=== PATIENT | female | born 1980 | race Caucasian/White ===

== ENCOUNTER 2018-03-29 08:45 | Outpatient (CLI) | payer BC, SELFPAY ==
[2018-03-29 09:41] LABS: HCT 39.5 % (36.0-46.0); Mean Corp. HGB Concentration 32.9 g/dL (32.0-36.0); Mean Corpuscular Volume 85.1 fL (80-95); Mean Platelet Volume 11.2 fL (8.0-11.0); Platelet Count 275 x1000/uL (130-400); RBC 4.64 m/cumm (4.00-5.20); RBC Distribution Width 12.8 % (11.7-14.6); White Blood Cell Count 6.85 k/cumm (4.4-10.8)
[2018-03-29 10:22] LABS: Anion Gap 9.8 mmol/L (3-11); BUN 12 mg/dL (7-18); CO2 27.2 mmol/L (21.0-32.0); CREATININE 0.68 mg/dL (0.55-1.02); Calcium 9.1 mg/dL (8.5-10.1); Chloride 103 mmol/L (98-107); Cholesterol 190 mg/dL (50-200); Glucose 88 mg/dL (70-100); HDL Cholesterol 40 mg/dL (40-60); LDL CHOLESTEROL 143 mg/dL (<100); Potassium 4.4 mmol/L (3.5-5.1); Sodium 140 mmol/L (136-145); TSH (W/Ref FT4) 1.15 uIU/mL (0.358-3.74); Triglyceride 47 mg/dL (30-150)
== END 2018-03-29 09:05 ==
PROVIDERS: PCP Family Medicine; Visit Provider Family Medicine
DX: Z00.00 Encounter for general adult medical examination without abnormal findings (principal); I10 Essential (primary) hypertension; E66.9 Obesity, unspecified
CPT/HCPCS: 36415; 80048; 80061; 83721; 85027; 84443

== ENCOUNTER 2018-07-09 09:15 | Outpatient (REF) | payer BC, SELFPAY ==
[2018-07-09 12:50] LABS: Anion Gap 11.9 mmol/L (3-11); BUN 15 mg/dL (7-18); CO2 30.1 mmol/L (21.0-32.0); CREATININE 0.77 mg/dL (0.55-1.02); Calcium 9.7 mg/dL (8.5-10.1); Chloride 97 mmol/L (98-107); Glucose 104 mg/dL (70-100); Potassium 3.3 mmol/L (3.5-5.1); Sodium 139 mmol/L (136-145)
== END 2018-07-09 09:35 ==
LOC: NCHCN 09:15
PROVIDERS: PCP Family Medicine; Visit Provider Family Medicine
DX: I10 Essential (primary) hypertension (principal)
CPT/HCPCS: 80048

== ENCOUNTER 2018-07-15 19:06 | Emergency (ER) | payer BC, SELFPAY ==
--- NOTE | 2018-07-15 19:11 | W.ED.GENAD ---
Discharge Plan Disposition Patient Disposition: HOME Condition: Stable Discharge Details Chief Complaint: Orthopedic Clinical Impression: Contusion of hand, right Reason For Visit: right hand injury Primary Care Provider: Ольга Lacey ED Provider: Neptali Enamorado Discharge Instructions Instructions: Contusion in Adults (ED) Additional Instructions: you can take 1000mg tylenol and 600mg ibuprofen every 6 hours for pain as needed if pain continues next week see your primary care provider Discharge Data Discharge Date/Time-TO BE ENTERED AT DEPARTURE: 07/15/18 20:16 Medical Decision Making 38 yo female states 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 Did not fall or have loc, has pain the posterior mid hand over the mid 2nd and 3rd metatarsals without palpable or visbile deformity. HAs full rom of the fingers, 2+ radial and ulnar pulses, no pain in wrist or snuffbox and has full rom of the wrist. Will xray hand to eval for fx though likely contusion xray negative on my read, if vrad agrees will d/c as likely bone contusion Differential Diagnosis contusion, sprain, fx Imaging Data Radiologic Study: Attestation: I personally reviewed and interpreted this imaging study as follows: Imaging: X-Ray My impression: no acute findings HPI General Mode of arrival: ambulatory. Date/Time Provider Initiated Documentation: 07/15/18 19:07. Limitations to Documentation: no limitations. Information obtained by: patient. History of Present Illness 38 year old F presents to the emergency department with the chief complaint of right hand pain, described as moderate, Quality is described as aching, and is localized to the right and upper extremity. Patient reports no radiation. Patient started experiencing this hour(s) (1) and it has been constant. Rest improves symptom(s), Movement worsens symptoms . Patient notes no other symptoms.. Patient did receive the following treatments prior to arrival, none Related Data Allergies Allergy/AdvReac Type Severity Reaction Status Date / Time Penicillins Allergy Unverified 07/15/18 19:16 Review of Systems Review of Systems All systems reviewed & are unremarkable except as noted in HPI and below Constitutional Denies chills, Denies fever(s) and Denies weakness ENT Denies change in voice Cardiovascular Denies chest pain and Denies dyspnea Respiratory Denies cough and Denies dyspnea Gastrointestinal Denies abdominal pain, Denies nausea and Denies vomiting Genitourinary Denies dysuria Musculoskeletal Denies joint swelling Neurologic Denies weakness [facility] Social History Smoking and Tabacco status: Never Exam Const General: no acute distress Orientation: alert HENMT Head: normal to inspection Ears: external ears normal General nose exam: external nose normal Mouth: moist mucous membranes Eyes General: appearance normal, both eyes and all related structures Neck Neck: normal visual inspection Resp Effort & Inspection: normal respiratory effort and able to speak in complete sentences Cardio Rate: regular rate Skin General skin exam: no rashes or lesions noted Neuro General: alert and oriented x3 Extrem General: normal to inspection, full ROM and normal capillary refill Psych Mental Status: mental status grossly normal
[2018-07-15 19:12] VITALS: BP 150/100; PULSE 90; RESP 18; TEMP 36.6; O2SAT 96
--- NOTE | 2018-07-15 19:21 | ED.GENADUL_ITS ---
Discharge Plan Disposition Patient Disposition: HOME Condition: Stable Discharge Details Chief Complaint: Orthopedic Clinical Impression: Contusion of hand, right Reason For Visit: right hand injury Primary Care Provider: Ольга Lacey ED Provider: Neptali Enamorado Discharge Instructions Instructions: Contusion in Adults (ED) Additional Instructions: you can take 1000mg tylenol and 600mg ibuprofen every 6 hours for pain as needed if pain continues next week see your primary care provider Discharge Data Discharge Date/Time-TO BE ENTERED AT DEPARTURE: 07/15/18 20:16 Medical Decision Making 38 yo female states 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 Did not fall or have loc, has pain the posterior mid hand over the mid 2nd and 3rd metatarsals without palpable or visbile deformity. HAs full rom of the fingers, 2+ radial and ulnar pulses, no pain in wrist or snuffbox and has full rom of the wrist. Will xray hand to eval for fx though likely contusion xray negative on my read, if vrad agrees will d/c as likely bone contusion Differential Diagnosis contusion, sprain, fx Imaging Data Radiologic Study: Attestation: I personally reviewed and interpreted this imaging study as follows: Imaging: X-Ray My impression: no acute findings HPI General Mode of arrival: ambulatory . Date/Time Provider Initiated Documentation: 07/15/18 19:07 . Limitations to Documentation: no limitations . Information obtained by: patient . History of Present Illness 38 year old F presents to the emergency department with the chief complaint of right hand felix n, described as moderate, Quality is described as aching, and is localized to the right and upper extremity. Patient reports no radiation. Patient started experiencing this hour(s) (1) and it has been constant. Rest improves symptom(s), Movement worsens symptoms . Patient notes no other symptoms.. Patient did receive the following treatments prior to arrival, none Related Data Allergies Allergy/AdvReac Type Severity Reaction Status Date / Time Penicillins Allergy Unverified 07/15/18 19:16 Review of Systems Review of Systems All systems reviewed & are unremarkable except as noted in HPI and below Constitutional Denies chills, Denies fever(s) and Denies weakness ENT Denies change in voice Cardiovascular Denies chest pain and Denies dyspnea Respiratory Denies cough and Denies dyspnea Gastrointestinal Denies abdominal pain, Denies nausea and Denies vomiting Genitourinary Denies dysuria Musculoskeletal Denies joint swelling Neurologic Denies weakness [facility] Social History Smoking and Tabacco status: Never Exam Const General: no acute distress Orientation: alert HENMT Head: normal to inspection Ears: external ears normal General nose exam: external nose normal Mouth: moist mucous membranes Eyes General: appearance normal, both eyes and all related structures Neck Neck: normal visual inspection Resp Effort & Inspection: normal respiratory effort and able to speak in complete sentences Cardio Rate: regular rate Skin General skin exam: no rashes or lesions noted Neuro General: alert and oriented x3 Extrem General: normal to inspection, full ROM and normal capillary refill Psych Mental Status: mental status grossly normal
--- NOTE | 2018-07-15 19:30 | DI.RAD_ITS ---
SYMPTOM/DIAGNOSIS: PAIN RIGHT HAND: No fracture or dislocation is seen. There are no significant degenerative changes. There are no bony erosions. IMPRESSION: Negative right hand.
--- NOTE | 2018-07-15 20:01 | DI.VRAD_ITS ---
EXAM: XR Right Hand Complete, 3 or more Views EXAM DATE/TIME: 07/15/2018 7:17 PM CLINICAL HISTORY: 38 years old, female; Pain; Hand; Right; Patient HX: Pain in r hand mid 2nd and 3rd metacarpal TECHNIQUE: XR Right hand 3 or more views. COMPARISON: No relevant prior studies available. FINDINGS: Bones/joints: Osseous anatomic alignment is well preserved. No acutely displaced fracture or dislocation. Joint spaces are well preserved. Soft tissues: Normal. IMPRESSION: Negative for acute skeletal pathology. Dictated and Authenticated by: Alfonzo Subramanian MD. Ordering:CATHERINE Gunderson MD
== END 2018-07-15 20:16 | disposition home or self-care (01) ==
PROVIDERS: Emergency Provider Emergency Medicine; PCP Family Medicine
DX: S60.221A Contusion of right hand, initial encounter (principal); W22.8XXA Striking against or struck by other objects, initial encounter
CPT/HCPCS: 99283; 73130; 99282

== ENCOUNTER 2018-08-03 10:16 | Outpatient (CLI) | payer BC, SELFPAY ==
[2018-08-03 10:53] LABS: BUN 15 mg/dL (7-18); CREATININE 0.74 mg/dL (0.55-1.02); Calcium 9.2 mg/dL (8.5-10.1); Chloride 100 mmol/L (98-107); Glucose 99 mg/dL (70-100)
[2018-08-03 11:00] LABS: Sodium 136 mmol/L (136-145)
[2018-08-03 11:14] LABS: Potassium 2.9 mmol/L (3.5-5.1)
[2018-08-03 13:01] LABS: Magnesium 1.9 mg/dL (1.8-2.4)
== END 2018-08-03 10:36 ==
PROVIDERS: PCP Family Medicine; Visit Provider Family Medicine
DX: I10 Essential (primary) hypertension (principal)
CPT/HCPCS: 36415; 80048; 83735

== ENCOUNTER 2018-08-07 16:35 | Outpatient (REF) | payer BC, SELFPAY ==
[2018-08-07 21:28] LABS: Anion Gap 8.9 mmol/L (3-11); BUN 15 mg/dL (7-18); CO2 30.1 mmol/L (21.0-32.0); CREATININE 0.81 mg/dL (0.55-1.02); Calcium 9.3 mg/dL (8.5-10.1); Chloride 101 mmol/L (98-107); Glucose 125 mg/dL (70-100); Potassium 3.9 mmol/L (3.5-5.1); Sodium 140 mmol/L (136-145)
[2018-08-07 22:09] LABS: ESR 17 MM/HR (0-20)
== END 2018-08-07 16:55 ==
LOC: NCHCN 16:35
PROVIDERS: PCP Family Medicine; Visit Provider Family Medicine
DX: E87.6 Hypokalemia (principal)
CPT/HCPCS: 80048; 85652

== ENCOUNTER 2018-08-12 15:18 | Outpatient (REF) | payer BC, SELFPAY ==
[2018-08-12 19:10] LABS: Anion Gap 11.9 mmol/L (3-11); BUN 8 mg/dL (7-18); CO2 25.1 mmol/L (21.0-32.0); CREATININE 0.72 mg/dL (0.55-1.02); Calcium 8.7 mg/dL (8.5-10.1); Chloride 101 mmol/L (98-107); Glucose 86 mg/dL (70-100); Potassium 3.9 mmol/L (3.5-5.1); Sodium 138 mmol/L (136-145)
== END 2018-08-12 15:38 ==
LOC: NCHCN 15:18
PROVIDERS: PCP Family Medicine; Visit Provider Family Medicine
DX: I10 Essential (primary) hypertension (principal); E87.6 Hypokalemia
CPT/HCPCS: 80048

== ENCOUNTER 2018-08-26 12:00 | Outpatient (REF) | payer BC, SELFPAY ==
[2018-08-26 20:27] LABS: Anion Gap 8.8 mmol/L (3-11); BUN 11 mg/dL (7-18); CO2 28.2 mmol/L (21.0-32.0); CREATININE 0.71 mg/dL (0.55-1.02); Calcium 9.4 mg/dL (8.5-10.1); Chloride 104 mmol/L (98-107); Glucose 102 mg/dL (70-100); Potassium 4.8 mmol/L (3.5-5.1); Sodium 141 mmol/L (136-145)
== END 2018-08-26 12:20 ==
LOC: NCHCN 12:00
PROVIDERS: PCP Family Medicine; Visit Provider Family Medicine
DX: E87.6 Hypokalemia (principal); I10 Essential (primary) hypertension
CPT/HCPCS: 80048

== ENCOUNTER 2018-09-24 15:20 | Outpatient (REF) | payer BC, SELFPAY ==
[2018-09-24 19:19] LABS: Anion Gap 11.6 mmol/L (3-11); BUN 12 mg/dL (7-18); CO2 26.4 mmol/L (21.0-32.0); CREATININE 0.82 mg/dL (0.55-1.02); Chloride 100 mmol/L (98-107); Glucose 93 mg/dL (70-100); Sodium 138 mmol/L (136-145)
[2018-09-24 19:39] LABS: Calcium 9.6 mg/dL (8.5-10.1)
== END 2018-09-24 15:40 ==
LOC: NCHCN 15:20
PROVIDERS: PCP Family Medicine; Visit Provider Family Medicine
DX: I10 Essential (primary) hypertension (principal)
CPT/HCPCS: 80048

== ENCOUNTER 2018-10-20 20:09 | Emergency (ER) | payer BC, SELFPAY ==
[2018-10-20 20:16] VITALS: BP 140/107; PULSE 68; RESP 18; TEMP 36.8; O2SAT 99
--- NOTE | 2018-10-20 20:23 | W.ED.GENAD ---
Discharge Plan Disposition Patient Disposition: HOME Condition: Good Discharge Details Chief Complaint: Laceration Clinical Impression: Laceration of thumb Primary Care Provider: Ольга Lacey ED Provider: Marie Morocho Home Meds and New Rx's Prescriptions: Continued atorvastatin [Lipitor] 20 mg Tablet 20 mg PO DAILY RF: 0 Discharge Instructions Instructions: Laceration (ED) Additional Instructions: Keep wound clean, dry, covered. You may wash with running water and soap tomorrow. Do not soak or submerge. Do not apply any ointments or lotions to this as it may cause premature breakdown. Please allow the adhesive to come off naturally. Monitor for signs of infection including redness, warmth, drainage, increased pain, fever/chills. If these or other new/worsening symptoms arise please seek care urgently once again Referrals: Ольга Lacey MD [Primary Care Provider] - Medical Decision Making Patient is a 38-year-old lmucz-ddmi-xkcqfate female presenting today with chief complaint of laceration to left thumb. He reports that he was cutting a tomato when she slipped and sliced the distal aspect of her thumb. Has a curvilinear laceration to the ulnar side of her thumb. Is actively bleeding. She reports she got a tetanus 1 month ago. Wound edges are well approximated. We discussed closure techniques. I feel this is amenable to adhesive. We discussed risks benefits as well as expected procedural steps. She was understanding and wished to proceed Prior to procedure, let was applied Procedure note: Using standard sterile technique, the wound was copiously irrigated with chlorhexidine and explored to place in a bloodless field. A finger tourniquet was used to facilitate this. The wound edges were then reapproximated and closed with layer of adhesive. Patient tolerated this well. Patient and I didscussed care of adhesive as well as care of wound itself. Given return precautions, in particular, signs of infection. All of her question and concerns were addressed, she is in agreement with this cheo. HPI General Mode of arrival: ambulatory. Date/Time Provider Initiated Documentation: 10/20/18 20:19. Limitations to Documentation: no limitations. Information obtained by: patient and RN notes reviewed. History of Present Illness 38 year old F presents to the emergency department with the chief complaint of laceration left thumb, described as moderate, with intensity rated at 4. Quality is described as burning, and is localized to the left and upper extremity. Patient reports no radiation. Patient started experiencing this minute(s) and it has been constant. Immobilization improves symptom(s), Movement worsens symptoms . Patient notes no other symptoms.. Patient [facility] the following [facility] Related Data Home Medications Medication Instructions Recorded Confirmed atorvastatin [Lipitor] 20 mg PO DAILY 10/20/18 10/20/18 Allergies Allergy/AdvReac Type Severity Reaction Status Date / Time Penicillins Allergy Unverified 10/20/18 20:20 General Stated Complaint: Laceration JESSICA: 4 Review of Systems Constitutional Reports as per HPI, Denies chills and Denies fever(s) Musculoskeletal Reports as per HPI Integumentary/Breasts Reports as per HPI Neurologic Reports as per HPI, Denies sensory deficit and Denies paresthesias [facility] Social History Smoking/Tobacco Use Status: Never Alcohol Intake: never Drug use: Never Do you feel safe at home: Yes Do you feel safe in your relationship?: Yes Exam Const General: cooperative, healthy appearing, comfortable, no acute distress and well developed Nutritional Appearance: average body habitus and well nourished Orientation: alert and awake Resp Effort & Inspection: normal respiratory effort, able to speak in complete sentences and no respiratory distress Cardio Rate: regular rate Rhythm: regular rhythm Skin Trauma: laceration (curvilear 1.5cm laceration distla left thumb) Neuro General: alert and awake Cognition: normal cognition Speech: speech normal Gait: normal gait Sensory Exam: no sensory deficits noted Extrem Left upper extremity: full ROM, normal capillary refill and no joint enlargement; abnormal to inspection (laceration as above) Psych Appearance: grossly normal and well kempt Mental Status: mental status grossly normal Speech and Movement: speech and movement normal Course Vital Signs Temperature 36.8 C 10/20/18 20:16 Pulse 68 10/20/18 20:16 Respiratory Rate 18 10/20/18 20:16 Blood Pressure 140/107 H 10/20/18 20:16 Pulse Oximetry 99 10/20/18 20:16 Temperature 36.8 C 10/20/18 20:16 Temperature Source Skin 10/20/18 20:16 Pulse 68 10/20/18 20:16 Respiratory Rate 18 10/20/18 20:16 Respiratory Effort Non-Labored 10/20/18 20:19 Blood Pressure 140/107 H 10/20/18 20:16 Blood Pressure Position Sitting 10/20/18 20:16 Pulse Oximetry 99 10/20/18 20:16 Oxygen Delivery Method Room Air 10/20/18 20:16 Oxygen Flow Rate 0 10/20/18 20:16 Pain Level 4 10/20/18 20:16
[2018-10-20] MEDS: Lidocaine/Epinephri/Tetracaine Topical Gel 3 ML TP (20:43)
--- NOTE | 2018-10-20 21:43 | ED.GENADUL_ITS ---
Discharge Plan Disposition Patient Disposition: HOME Condition: Good Discharge Details Chief Complaint: Laceration Clinical Impression: Laceration of thumb Primary Care Provider: Ольга Lacey ED Provider: Marie Morocho Home Meds and New Rx's Prescriptions: Continued atorvastatin [Lipitor] 20 mg Tablet 20 mg PO DAILY RF: 0 Discharge Instructions Instructions: Laceration (ED) Additional Instructions: Keep wound clean, dry, covered. You may wash with running water and soap tomorrow. Do not soak or submerge. Do not apply any ointments or lotions to this as it may cause premature breakdown. Please allow the adhesive to come off naturally. Monitor for signs of infection including redness, warmth, drainage, increased pain, fever/chills. If these or other new/worsening symptoms arise please seek care urgently once again Referrals: Ольга Lacey MD [Primary Care Provider] - Medical Decision Making Patient is a 38-year-old knwzj-nhsb-egjahtmz female presenting today with chief complaint of laceration to left thumb. He reports that he was cutting a tomato when she slipped and sliced the distal aspect of her thumb. Has a curvilinear laceration to the ulnar side of her thumb. Is actively bleeding. She reports she got a tetanus 1 month ago. Wound edges are well approximated. We discussed closure techniques. I feel this is amenable to adhesive. We discussed risks benefits as well as expected procedural steps. She was understanding and wished to proceed Prior to procedure, let was applied Procedure note: Using standard sterile technique, the wound was copiously irrigated with chlorhexidine and explored to place in a bloodless field. A finger tourniquet was used to facilitate this. The wound edges were then reapproximated and closed with layer of adhesive. Patient tolerated this well. Patient and I didscussed care of adhesive as well as care of wound itself. Given return precautions, in particular, signs of infection. All of her question and concerns were addressed, she is in agreement with this cheo. HPI General Mode of arrival: ambulatory . Date/Time Provider Initiated Documentation: 10/20/18 20:19 . Limitations to Documentation: no limitations . Information obtained by: patient and RN notes reviewed . History of Present Illness 38 year old F presents to the emergency department with the chief complaint of laceration left thumb, described as moderate, with intensity rated at 4. Quality is described as burning, and is localized to the left and upper extremity. Patient reports no radiation. Patient started experiencing this minute(s) and it has been constant. Immobilization improves symptom(s), Movement worsens symptoms . Patient notes no other symptoms.. Patient did receive the following [facility] to [facility] Related Data Home Medications Medication Instructions Recorded Confirmed atorvastatin [Lipitor] 20 mg PO DAILY 10/20/18 10/20/18 Allergies Allergy/AdvReac Type Severity Reaction Status Date / Time Penicillins Allergy Unverified 10/20/18 20:20 General Stated Complaint: Laceration JESSICA: 4 Review of Systems Constitutional Reports as per HPI, Denies chills and Denies fever(s) Musculoskeletal Reports as per HPI Integumentary/Breasts Reports as per HPI Neurologic Reports as per HPI, Denies sensory deficit and Denies paresthesias [facility] Social History Smoking/Tobacco Use Status: Never Alcohol Intake: never Drug use: Never Do you feel safe at home: Yes Do you feel safe in your relationship?: Yes Exam Const General: cooperative, healthy appearing, comfortable, no acute distress and well developed Nutritional Appearance: average body habitus and well nourished Orientation: alert and awake Resp Effort & Inspection: normal respiratory effort, able to speak in complete sentences and no respiratory distress Cardio Rate: regular rate Rhythm: regular rhythm Skin Trauma: laceration (curvilear 1.5cm laceration distla left thumb) Neuro General: alert and awake Cognition: normal cognition Speech: speech normal Gait: normal gait Sensory Exam: no sensory deficits noted Extrem Left upper extremity: full ROM, normal capillary refill and no joint enlargement; abnormal to inspection (laceration as above) Psych Appearance: grossly normal and well kempt Mental Status: mental status grossly normal Speech and Movement: speech and movement normal Course Vital Signs Temperature 36.8 C 10/20/18 20:16 Pulse 68 10/20/18 20:16 Respiratory Rate 18 10/20/18 20:16 Blood Pressure 140/107 H 10/20/18 20:16 Pulse Oximetry 99 10/20/18 20:16 Temperature 36.8 C 10/20/18 20:16 Temperature Source Skin 10/20/18 20:16 Pulse 68 10/20/18 20:16 Respiratory Rate 18 10/20/18 20:16 Respiratory Effort Non-Labored 10/20/18 20:19 Blood Pressure 140/107 H 10/20/18 20:16 Blood Pressure Position Sitting 10/20/18 20:16 Pulse Oximetry 99 10/20/18 20:16 Oxygen Delivery Method Room Air 10/20/18 20:16 Oxygen Flow Rate 0 10/20/18 20:16 Pain Level 4 10/20/18 20:16
== END 2018-10-20 21:48 | disposition home or self-care (01) ==
PROVIDERS: Emergency Provider Physician Assistant; PCP Family Medicine
DX: S61.012A Laceration without foreign body of left thumb without damage to nail, initial encounter (principal); W26.0XXA Contact with knife, initial encounter
CPT/HCPCS: 12001

== ENCOUNTER 2018-12-19 10:01 | Outpatient (REF) | payer BC, SELFPAY ==
[2018-12-19 18:30] LABS: BUN 14 mg/dL (7-18); CREATININE 0.84 mg/dL (0.55-1.02); Calcium 9.4 mg/dL (8.5-10.1); Chloride 102 mmol/L (98-107); Glucose 107 mg/dL (70-100); Potassium 4.1 mmol/L (3.5-5.1); Sodium 140 mmol/L (136-145)
== END 2018-12-19 10:21 ==
LOC: NCHCN 10:01
PROVIDERS: PCP Family Medicine; Visit Provider Family Medicine
DX: E87.6 Hypokalemia (principal)
CPT/HCPCS: 80048

== ENCOUNTER 2019-12-11 07:49 | Outpatient (REF) | payer BC, SELFPAY ==
[2019-12-11 15:02] LABS: HCT 39.2 % (36.0-46.0); HGB 12.9 g/dL (11.2-15.7); MCH 28.3 pg (27.0-33.0); MCHC 32.9 % (32.0-36.0); MPV 11.5 fL (8.0-11.0); Platelet Count 249 10^3/uL (130-400); RBC 4.56 10^6/uL (3.93-5.22); RDW 12.7 % (11.7-14.6); RDW-SD 39.8 fL; WBC 6.84 10^3/uL (4.4-10.8)
[2019-12-11 15:06] LABS: Anion Gap 9.5 mmol/L (3-11); BUN 11 mg/dL (7-18); CO2 26.5 mmol/L (21.0-32.0); CREATININE 0.74 mg/dL (0.55-1.02); Calcium 8.9 mg/dL (8.5-10.1); Chloride 102 mmol/L (98-107); Glucose 91 mg/dL (74-106); Potassium 4.1 mmol/L (3.5-5.1); Sodium 138 mmol/L (136-145)
[2019-12-11 15:53] LABS: Hemoglobin A1C 6.3 % (3.8-5.6)
== END 2019-12-11 08:09 ==
LOC: NCHCN 07:49
PROVIDERS: PCP Family Medicine; Visit Provider Family Medicine
DX: I10 Essential (primary) hypertension (principal); R73.9 Hyperglycemia, unspecified
CPT/HCPCS: 80048; 85027; 83036

== ENCOUNTER 2020-04-05 19:30 | Outpatient (REF) | payer BC, SELFPAY ==
[2020-04-08 06:55] LABS: Patient Race White; SARS-CoV-2 RNA Undetected (Undetected); SARS-CoV-2 Specimen Source Nasal
== END 2020-04-05 19:50 ==
LOC: NCHCN 19:30
PROVIDERS: PCP Nurse Practitioner Family; Visit Provider Nurse Practitioner Family
DX: Z20.828 Contact with and (suspected) exposure to other viral communicable diseases (principal)
CPT/HCPCS: U0003

== ENCOUNTER 2021-02-09 16:54 | Outpatient (REF) | payer BC, SELFPAY ==
[2021-02-09 20:04] LABS: Anion Gap 8.6 mmol/L (3-11); BUN 13 mg/dL (7-18); CO2 27.4 mmol/L (21.0-32.0); CREATININE 0.8 mg/dL (0.55-1.02); Calcium 9.5 mg/dL (8.5-10.1); Chloride 103 mmol/L (98-107); Glucose 91 mg/dL (74-106); Sodium 139 mmol/L (136-145)
[2021-02-09 20:15] LABS: Hemoglobin A1C 5.9 % (<5.7)
== END 2021-02-09 16:55 | disposition home or self-care (01) ==
LOC: NCHCN 16:54
PROVIDERS: PCP Nurse Practitioner Family; Visit Provider Family Medicine
DX: I10 Essential (primary) hypertension (principal); R73.03 Prediabetes
CPT/HCPCS: 80048; 83036

== ENCOUNTER 2021-06-02 13:35 | Outpatient (REF) | payer BC, SELFPAY ==
--- NOTE | 2021-06-02 13:30 | PAPFT_PTH ---
PATIENT: Bell Hernandez LOC: [facility] U#:[id number] AGE/SX: 40/F ROOM: RE06/02/[address]: Kim Balbuena : 1980 BED: DIS: 06/02/2021 SPEC #: [id number] RECD: 06/02/21 17:19 STATUS: JENNI REReji #: [id number] IVON: 06/02/21 13:[address]: Kim Balbuena DEPT: [facility] Cytology RECD BY: Judy Duckworth ENTERED: 06/02/21 17:20 SP TYPE: PAPFT OTHR DR: Leobardo Garcia Tissues: 1 - CX/ENDOCX FOR PAP SMEARS Procedures: PAP THIN PREP/UVM Screening HPV DNA PROBE Comments: [id number]
== END 2021-06-02 13:36 | disposition home or self-care (01) ==
LOC: LBN 13:35
PROVIDERS: PCP Nurse Practitioner Family; Visit Provider Obstetrics & Gynecology Gynecology
DX: Z12.4 Encounter for screening for malignant neoplasm of cervix (principal); Z11.51 Encounter for screening for human papillomavirus (HPV)
CPT/HCPCS: 88142; 87624

== ENCOUNTER 2021-07-18 02:59 | Outpatient (CLI) | payer BC, SELFPAY ==
--- NOTE | 2021-07-18 17:30 | DI.MAMMO_ITS ---
Exam(s) MAMMO SCREENING EXAM: MAMMO SCREENING CLINICAL HISTORY: screening. TECHNIQUE: Bilateral full field digital CC and MLO mammographic images were obtained with 3D tomosyn thesis and utilizing computer aided detection (CAD). COMPARISON: None. This is a baseline screening mammogram on this 41-year-old. FINDINGS: There are no CAD designations. There are no new spiculated masses nor malignant appearing microcalcification groups. There is no significant architectural distortion nor skin thickening-retraction. IMPRESSION: No radiographic evidence of malignancy. BI-RADS Category 1 - Negative Breast Density - Category B - Scattered areas of fibroglandular density Breast density Category C or D implies that the patient has dense breast tissue. Dense breast tissue can make it harder to find cancer on a mammogram. Dense breast tissue is also associated with an incr eased risk of breast cancer. This information about the result of the mammogram report was provided to the patient to raise their awareness. Use this report when you speak with the patient about their risks for breast cancer, which includes their family history. At that time, you may recommend additional screening tests (Ultrasoun d or MRI) as these tests may add significant information. A negative radiographic report should not delay biopsy if a dominant or clinically suspicious mass is present. Up to ten percent of cancers are not identified on mammography. A negative report may reinforce clinical impression. Adenosis and dense breasts may obscure an underlying neoplasm. False positive reports average 6 to 10%. Patient will receive a letter notifying them of these results.
== END 2021-07-18 03:19 ==
PROVIDERS: PCP Nurse Practitioner Family; Visit Provider Obstetrics & Gynecology Gynecology
DX: Z12.31 Encounter for screening mammogram for malignant neoplasm of breast (principal)
CPT/HCPCS: 77063; 77067

== ENCOUNTER 2022-05-05 09:44 | Outpatient (REF) | payer BC, SELFPAY ==
[2022-05-05 21:15] LABS: Anion Gap 10.8 mmol/L (3-11); BUN 12 mg/dL (7-18); CO2 25.2 mmol/L (21.0-32.0); CREATININE 0.8 mg/dL (0.55-1.02); Calcium 8.8 mg/dL (8.5-10.1); Chloride 103 mmol/L (98-107); Glucose 126 mg/dL (74-106); Potassium 3.9 mmol/L (3.5-5.1); Sodium 139 mmol/L (136-145)
[2022-05-05 21:25] LABS: Hemoglobin A1C 5.7 % (<5.7)
[2022-05-09 10:12] LABS: Hepatitis C Ab w Rflx HCV PCR Negative (Negative)
[2022-05-09 10:16] LABS: HIV-1/2 Ag & Ab Screen Negative (Negative)
== END 2022-05-05 09:45 | disposition home or self-care (01) ==
LOC: NCHCN 09:44
PROVIDERS: PCP Family Medicine; Visit Provider Family Medicine
DX: Z00.00 Encounter for general adult medical examination without abnormal findings (principal); Z11.4 Encounter for screening for human immunodeficiency virus [HIV]; R73.03 Prediabetes; I10 Essential (primary) hypertension; Z11.59 Encounter for screening for other viral diseases
CPT/HCPCS: 80048; 86803; 87389; 83036

== ENCOUNTER 2022-05-12 09:14 | Outpatient (REF) | payer BC, SELFPAY ==
--- NOTE | 2022-05-12 08:00 | SKI_PTH ---
PATIENT: Bell Hernandez LOC: [facility]#:[id number] AGE/SX: 41/F ROOM: RE05/12/[address]: Ольга Lacey : 1980 BED: DIS: 05/12/2022 SPEC #: [id number] RECD: 05/12/22 15:00 STATUS: JENNI MCCRAY #: [id number] IVON: 05/12/22 08:[address]: Ольга Lacey DEPT: Surgical Specimen RECD BY: Charmaine Gannon Tissues: 1 - SKIN BIOPSY(SHAVE/PUNCH) Procedures: SKIN LEVEL 4 Comments: [id number]
== END 2022-05-12 09:15 | disposition home or self-care (01) ==
LOC: NCHCN 09:14
PROVIDERS: PCP Family Medicine; Visit Provider Family Medicine
DX: D18.01 Hemangioma of skin and subcutaneous tissue (principal)
CPT/HCPCS: 88305

== ENCOUNTER 2022-08-29 01:20 | Outpatient (CLI) | payer BC, SELFPAY ==
--- NOTE | 2022-08-29 07:45 | DI.MAMMO_ITS ---
Exam(s) MAMMO SCREENING EXAM: MAMMO SCREENING CLINICAL HISTORY: screening TECHNIQUE: Bilateral full field digital CC and MLO mammographic images were obtained with 3D tomosyn thesis and utilizing computer aided detection (CAD). COMPARISON: Available for comparison. FINDINGS: Masses/Architectural Distortion: None seen. Microcalcifications: No suspicious pleomorphic-type are seen. Skin Thickening/Nipple Retraction: None. IMPRESSION: 1. No significant interval change with no specific features of malignancy noted. 2. Unless there is more urgent need, screening mammography is recommended, as per [employer] guidelines. BI-RADS Category 1 - Negative Breast Density - Category B - Scattered areas of fibroglandular density Breast density category C or D implies that the patient has dense breast tissue. Dense breast tissue is very common and is not abnormal but dense breast tissue can make it harder to find cancer on a ma mmogram. Also, dense breast tissue may increase their breast cancer risk. This information about the result of the mammogram report was provided to the patient to raise their awareness. Use this report when you speak with the patient about their risks for breast cancer, which includes their family hist ory. At that time, you may recommend for more screening tests (Ultrasound or MRI) as they might be us eful based on their risk. A negative radiographic report should not delay biopsy if a dominant or clinically suspicious mass is present. Up to ten percent of cancers are not identified on mammography. A negative report may reinforce clinical impression. Adenosis and dense breasts may obscure an underlying neoplasm. False positive reports average 6 to 10%. Patient will receive a letter notifying them of these results.
== END 2022-08-29 01:40 ==
PROVIDERS: PCP Family Medicine; Visit Provider Obstetrics & Gynecology Gynecology
DX: Z12.31 Encounter for screening mammogram for malignant neoplasm of breast (principal)
CPT/HCPCS: 77063; 77067

== ENCOUNTER 2022-12-07 02:18 | Outpatient (CLI) | payer BC, SELFPAY ==
--- NOTE | 2022-12-07 | DI.MRI_ITS ---
Exam(s) MR LOWER JOINT LT WO EXAM: MR LOWER JOINT LT WO CLINICAL HISTORY: INTERNAL DERANGEMENT,M23.92,? MEDIAL MENISCAL TEAR TECHNIQUE: Multiplanar multisequence MRI of the knee was performed. COMPARISON: No plain films available at the time of this MRI interpretation FINDINGS: EFFUSION: There is a small knee joint effusion. There is also a small Oro cyst in the popliteal fo ssa. MARROW:There is no evidence of fracture, bone contusion, nor osteochondral defects.. There are no si gnificant osseous lesions. PATELLOFEMORAL COMPARTMENT: The quadriceps tendon is intact. The patellar ligament is intact. There is mild thinning of the retropatellar cartilage over the medial facet. No osteochondral defect seen at this level and no degenerative subarticular cysts in the posterior patella. No patellar monica ma.There is no intraosseous signal to suggest recent patellar dislocation. There are no patellar reti nacular tears. CRUCIATE LIGAMENTS: The anterior cruciate ligament is intact.The posterior cruciate ligament is intac t. MEDIAL COMPARTMENT/MEDIAL MENISCUS: There is an oblique tear in the posterior horn of the medial meni scus. No flipped fragments. The meniscal root is intact. No meniscocapsular separation evident. T he anterior horn appears intact. There are minimal cartilage changes over this area. No prominent chondral defect subarticular edema. No OCD. No osteophytes. MEDIAL COLLATERAL LIGAMENT: Intact LATERAL COMPARTMENT/LATERAL MENISCUS: There is no evidence of lateral meniscal tear.There are no melly dral defects, osteochondral defects, subarticular marrow edema, nor osteophytes evident. ILIOTIBIAL BAND: Intact LATERAL COLLATERAL LIGAMENT COMPLEX: The fibular collateral ligament is intact. The biceps femoris t endon is intact.Popliteus muscle and tendon are intact. IMPRESSION: 1. There is no oblique tear towards the anterior aspect of the posterior horn of the medial meniscus. No bucket-handle configuration. The no flipped meniscal fragments. No meniscocapsular separation. No degenerative meniscal cysts. Minimal overlying condylar cartilage changes. No osteochondral de fects. 2. There are no tears of the lateral meniscus, cruciate ligament tears, nor collateral ligament tears . 3. Mild thinning of the retropatellar cartilage over the medial facet. No osteochondral defect at th is level. No abnormal signal in the patella. 4. Small joint effusion. Small Oro's cyst. DATA REPOSITORY:
== END 2022-12-07 02:38 ==
LOC: DI 02:19
PROVIDERS: PCP Family Medicine; Visit Provider Specialist
DX: M25.462 Effusion, left knee (principal); M71.22 Synovial cyst of popliteal space [Baker], left knee
CPT/HCPCS: 73721

== ENCOUNTER 2023-05-11 07:52 | Outpatient (REF) | payer BC, SELFPAY ==
--- OUTSIDE RECORDS SUMMARY | 2023-05-11 07:54 | XMS_ITS | Continuity of Care Document ---
Author Name Unknown Organization [facility] Address [address] [place] [id number] Care Team Providers Care Fitness Instructor Name Role Phone MARTIN GILLETTE Primary Care Physician Encounter [facility] NBR [id number] Date(s): 12/27/22 - 12/27/[address] [address]- [place] Encounter Diagnosis Tear of medial meniscus of left knee(Discharge Diagnosis) - 12/22/22 Discharge Disposition: Home or Self Care Attending Physician: Bj Everett MD Admitting Physician: Bj Everett MD Referring Physician: Bj Everett MD Allergies, Adverse Reactions, Alerts Substance Reaction Severity Status penicillin Anaphylaxis Severe Active Tape skin irritation Mild Active Assessment and Plan Future Appointments Future Scheduled Tests Radiology* MRI Knee w/o Contrast Left 11/28/22 * XR Knee Complete 4+ Views Left 11/23/22 Functional Status 12/27/22 Living Environment Home Environment No qualifying data available Prior ADL Status Independent Prior Mobility Status Independent Prior Instrumental ADL Level Independent Prior Cognitive-Communication Skills Ind ependent 12/27/22 Anti-Embolism Device Activity: Applied Anti-Embolism Site Condition: No complic ations 12/27/22 Antiembolism Device Graduated compressio n stockings, thigh high, bilateral, Intermittent pneumatic compression devices, knee high, bilat Medications hydrocortisone 2.5% topical ointment 1 gunner, Topical, BID, PRN rash, 0 Refill(s) Start Date: 12/21/22 Status: Ordered lisinopril 20 mg oral tablet 20 mg = 1 tab, Oral, Daily, 0 Refill(s) Start Date: 12/21/22 Status: Ordered sertraline 50 mg oral tablet 50 mg = 1 tab, Oral, Daily, 0 Refill(s) Start Date: 12/21/22 Status: Ordered Problem List Condition Confirmation Course Effective Dates Status Health St atus Informant Biceps tendinitis Confirmed Active Internal derangement of left knee Confirmed Active Heart murmur 1 Confirmed Active Heart murmur Confirmed Active HTN - Hypertension Confirmed Active Impingement syndrome of right shoulder region Confirmed Active PCOS- polycystic ovary syndrome Confirmed Active Prediabetes Confirmed Active Right rotator cuff syndrome Confirmed Active Tear of medial meniscus of left knee Confirmed Active 1normal echo 2018 Procedures Procedure Date Related Diagnosis Body Site Status Arthroscopy Knee (Left) 1 12/27/22 Completed Arthroscopy of shoulder C ompleted Bilateral tubal ligation Completed section Complete d Operative procedure on foot or toes 2 Completed 1auto-populated from documented surgical case 25th toe Vital Signs Most recent to oldest [Reference Range]: 1 2 3 Temperature Temporal Artery [36-38 Deg C] 36.3 Deg C (12/27/22 2:54 PM) 36.5 Deg C (12/27/22 12:14 PM) Temperature Temporal Artery (DegF) [97.3-100 Deg F] 97.34 Deg F (12/27/22 2:54 PM) Peripheral Pulse Rate [60-100 bpm] 65 bpm (12/27/22 3:39 PM) 69 bpm (12/27/22 3:16 PM) 70 bpm (12/27/22 3:12 PM) Heart Rate Monitored [60-100 bpm] 68 bpm (12/27/22 3:12 PM) 70 bpm (12/27/22 3:03 PM) 73 bpm (12/27/22 3:00 PM) Respiratory Rate [12-24 br/min] 18 br/min (12/27/22 12:14 PM) Blood Pressure [90-140/60-90 mmHg] 112/76mmHg (12/27/22 3:39 PM) 113/68mmHg (12/27/22 3:16 PM) 101/71mmHg (12/27/22 3:12 PM) Mean Arterial Pressure, Cuff [65-140 mmHg] 88 mmHg (12/27/22 3:39 PM) 83 mmHg (12/27/22 3:16 PM) 81 mmHg (12/27/22 3:12 PM) Mean Arterial Pressure Cuff 87 mmHg (12/27/22 3:39 PM) 83 mmHg (12/27/22 3:16 PM) 81 mmHg (12/27/22 3:12 PM) Weight 109.000 kg (12/22/22 11:25 AM) Weight Dosing 109.000 kg (12/22/22 11:25 AM) Height 168.000 cm (12/22/22 11:25 AM) Height/Length Dosing 168.000 cm (12/22/22 11:25 AM) Social History Social History Type Response Tobacco Never tobacco user T obacco Use:. Sex Patient Care team information Care Team Personnel Name: MARTIN GILLETTE Position: No Access Member Role: Primary Care Physician Address: Address: [address] [place] [address]- Care Team Related Persons Name: MAGDI BAILEY Address: Home [address] Name: NOT WANT TO GIVE, DOES Address: Home Name: DMITRY HEARD Address: Home [address]
--- OUTSIDE RECORDS SUMMARY | 2023-05-11 07:54 | XMS_ITS | Continuity of Care Document ---
Author Name Unknown Organization [facility] Address [address] [place] [address] Care Team Providers Care Carpenter'S Helper Name Role Phone MARTIN GILLETTE Primary Care Physician Encounter [facility] NBR [id number] Date(s): 04/10/23 - 04/10/23 [facility] [address] [place], [place] [address] Encounter Diagnosis Tear of medial meniscus of left knee(Discharge Diagnosis) - 04/10/23 Chondromalacia of left knee(Discharge Diagnosis) - 04/10/23 Discharge Disposition: Home or Self Care Attending Physician: Bj Everett MD Allergies, Adverse Reactions, Alerts Substance Reaction Severity Status penicillin Anaphylaxis Severe Active Tape skin irritation Mild Active Assessment and Plan Future Scheduled Tests Radiology* MRI Knee w/o Contrast Left 11/28/22 * XR Knee Complete 4+ Views Left 11/23/22 Medications aspirin 325 mg oral tablet 325 mg = 1 tab, Oral, Daily, # 30 tab, 0 Refill(s) Start Date: 01/04/23 Status: Ordered hydrocortisone 2.5% topical ointment 1 gunner, Topical, BID, PRN rash, 0 Refill(s) Start Date: 12/21/22 Status: Ordered lisinopril 20 mg oral tablet 20 mg = 1 tab, Oral, Daily, 0 Refill(s) Start Date: 12/21/22 Status: Ordered sertraline 50 mg oral tablet 50 mg = 1 tab, Oral, Daily, 0 Refill(s) Start Date: 12/21/22 Status: Ordered Problem List Condition Confirmation Course Effective Dates Status H ealth Status Informant Biceps tendinitis Confirmed Active Chondromalacia of left knee Confirmed Active Internal derangement of left knee Confirmed Active Heart murmur 1 Confirmed Active Heart murmur Confirmed Active HTN - Hypertension Confirmed Active Impingement syndrome of right shoulder region Confirmed Active PCOS- polycystic ovary syndrome Confirmed Active Prediabetes Confirmed Active Right rotator cuff syndrome Confirmed Active Plica syndrome of left knee Confirmed Active Tear of medial meniscus of [...] Most recent to oldest [Reference Range]: 1 Peripheral Pulse Rate [60-100 bpm] 84 bp m (04/10/23 3:01 PM) Blood Pressure [90-120/60-90 mmHg] 112/7 2mmHg (04/10/23 3:01 PM) Weight 104.33 kg (04/10/23 3:01 PM) Weight Measured (lbs) 230.008 lb (04/10/23 3:01 PM) Weight Dosing 104.330 kg (04/10/23 3:01 PM) Height 170.18 cm (04/10/23 3:01 PM) Height/Length Measured (inches) 67 inch (04/10/23 3:01 PM) BSA Measured 2.22 m2 (04/10/23 3:01 PM) Body Mass Index 36.02 kg/m2 (04/10/23 3:01 PM) Social History Social History Type Response Tobacco Never tobacco user T obacco Use:. Sex Hospital Discharge Instructions Follow Up Care 12/21/2022 15:25:15 With:Patient to call as needed Address: When: Unknown Physician Outpatient Note * Bj Everett MD: PERFORM Event Display: Office Clinic Note Physician Authored Date: [id number] CLAY ALONZO :1980 Age:42 years Sex:Female Visit Date:04/10/2023 Primary Care Physician: MARTIN GILLETTE Chief Complaint LEFT KNEE 3 MONTH History of Present Illness The patient presents for follow-up of her left knee status post arthroscopic partial medial meniscectomy, chondroplasty, plicotomy on 12/27/2022.?? The patient states that she is doing well and has been faithful about her exercises. ??She has gotten back to activity including??weightlifting and walking at least 3 miles per day. ??She has even been able to do a lunch without difficulty. ??She denies swelling, locking, catching, instability, or limping. ??She denies night pain, numbness, or tingling. ??She has not needed to take any medications to address her knee. Physical Exam Vitals & Measurements HR:??84??(Peripheral)?? BP:??112/72?? SpO2:??99%?? HT:??170.18??cm?? WT:??104.33??kg?? BMI:??36.02?? Pain Score:??0?? BSA:??2.22?? The patient's??left??lower extremity is neurovascularly intact. ??Sensation and motor exam are intact distally. ??All digits are warm and pink. ??Surgical wounds are well-healed. ??No swelling or effusion is present. ??Range of motion of the knee is full and painless. ??Heiid's test negative. ??The knee was found to be stable to anterior, posterior, varus, and valgus stress. ??No focal tenderness is present about the knee. Assessment/Plan 1.??Tear of medial meniscus of left knee??S83.242A 2.??Chondromalacia of left knee??M94.262 The patient appears to be doing very well status post the above procedure. ??We had a discussion about successful return to activities and how to minimize risk.?? The patient is hoping to get back topower lifting. ??I had a discussion with her about??the potential for reinjury. ??The patient??jimi aguilar??understanding and agreed with the above recommendations. ??She will contact us with any questions or concerns, otherwise we will see her on an as needed basis. Follow Up Instructions With When Contact Information Patient to call as needed Additional Instructions: Problem List/Past Medical History Ongoing Biceps tendinitis Chondromalacia of left knee Heart murmur Heart murmur HTN - Hypertension Impingement syndrome of right shoulder region Internal derangement of left knee PCOS- polycystic ovary syndrome Plica syndrome of left knee Prediabetes Right rotator cuff syndrome Tear of medial meniscus of left knee Historical No qualifying data Procedure/Surgical History ???Arthroscopy Knee (Left) (12/27/2022)???Arthroscopy of shoulder???Bilateral tubal ligation??? section???Operative procedure on foot or toes Medications aspirin 325 mg oral tablet, 325 mg= 1 tab, Oral, Daily hydrocortisone 2.5% topical ointment, 1 gunner, Topical, BID, PRN lisinopril 20 mg oral tablet, 20 mg= 1 tab, Oral, Daily sertraline 50 mg oral tablet, 50 mg= 1 tab, Oral, Daily Allergies penicillin??(Anaphylaxis) Tape??(skin irritation) Social History Alcohol Current, 1-2 times per year Electronic Cigarette/Vaping Electronic Cigarette Use: Never. Substance Use Never Tobacco Never tobacco user Tobacco Use:. Electronically Signed on 04/10/23 03:44 PM Bj Everett MD Patient Care team information Care Team Personnel Name: MARTIN GILLETTE Position: No Access Member Role: Primary Care Physician Address: Address: [address] [place] [address]- Care Team Related Persons Name: MAGDI BAILEY Address: Home [address] [place] [address] Name: NOT WANT TO GIVE, DOES Address: Home Name: FÉLIXDMITRY Address: Home [address] [place] [address]
--- OUTSIDE RECORDS SUMMARY | 2023-05-11 07:54 | XMS_ITS | Continuity of Care Document ---
Author Name Unknown Organization [facility] Address [address] [place] [address] Care Team Providers Care Senior Project Manager Name Role Phone MARTIN GILLETTE Primary Care Physician [phone] [facility] NBR [id number] Date(s): 01/04/23 - 01/04/23 [facility] [address] [place], [place] [address] Encounter Diagnosis Tear of medial meniscus of left knee(Discharge Diagnosis) - 01/04/23 Chondromalacia of left knee(Discharge Diagnosis) - 01/04/23 Plica syndrome of left knee(Discharge Diagnosis) - 01/04/23 Discharge Disposition: Home or Self Care Attending Physician: MIKAELA Tovar Referring Physician: MIKAELA Tovar Allergies, Adverse Reactions, Alerts Substance Reaction Severity [...] Range]: 1 Peripheral Pulse Rate [60-100 bpm] 58 bp m *LOW* (01/04/23 2:43 PM) Blood Pressure [90-140/60-90 mmHg] 124/7 6mmHg (01/04/23 2:43 PM) Weight 109 kg (01/04/23 2:43 PM) Weight Measured (lbs) 240.304 lb (01/04/23 2:43 PM) Height 168 cm (01/04/23 2:43 PM) Height/Length Measured (inches) 66.14 in ch (01/04/23 2:43 PM) BSA Measured 2.26 m2 (01/04/23 2:43 PM) Body Mass Index 38.62 kg/m2 (01/04/23 2:43 PM) Social History Social History Type Response Tobacco Never tobacco user T obacco Use:. Sex Physician Outpatient Note * MIKAELA Tovar: PERFORM Event Display: Office Clinic Note Physician Authored Date: [id number] CLAY ALONZO :1980 Age:42 years Sex:Female Visit Date:01/04/2023 Primary Care Physician: MARTIN GILLETTE Chief Complaint LEFT KNEE History of Present Illness The patient comes in today status post surgery on 12/27/2022. ??She had a left knee arthroscopy withpartial medial meniscectomy, shaving chondroplasty, and plicotomy.?? Her knee is feeling pretty good. ??It is a little bit stiff. ??She has a little bit of swelling but not very much. ??She is able to walk without very much difficulty.?? The patient denies any fevers, chills, chest pain, shortness of breath, numbness or tingling.?? Review of Systems Other than the HPI is unremarkable Physical Exam Vitals & Measurements HR:??58??(Peripheral)?? BP:??124/76?? SpO2:??91%?? HT:??168??cm?? WT:??109??kg?? BMI:??38.62?? BSA:??2.26?? General: AAOx3, in no acute distress, appears to be their stated age, is generally fit appearing. Walks with an antalgic gait. ?? Left knee: Mild effusion, mild edema. Well approximated incisions. No signs of bleeding, discharge or infection. Calves are soft and nontender, negative homans. Motor sensory reflex exam distally is intact. Range of motion is??comfortable to about 100 degrees of flexion and she has full extension. Assessment/Plan 1.??Tear of medial meniscus of left knee??S83.242A 2.??Chondromalacia of left knee??M94.262 3.??Plica syndrome of left knee??M67.52 The patient is doing fairly well with her left knee status post the aforementioned procedure. ??I counseled her that there is evidence of some arthritis in her knee and that power lifting may not be the best activity??going forward. ??She may have to adapt her exercises to be more in the appropriate. ??She will continue with her aspirin, Tylenol, and ice. ??I will give her a prescribed home exercise program for [employer]??which she will perform daily. ??We will seeher back in 6 weeks. Problem List/Past Medical History Ongoing Biceps tendinitis [...] tobacco user Tobacco Use:. Electronically Signed on 01/04/23 03:10 PM MIKAELA Tovar Patient Care team information Care Team Personnel Name: MARTIN GILLETTE Position: No Access Member Role: Primary Care Physician Address: Address: [address] [place] [address]- Care Team Related Persons Name: MAGDI BAILEY Address: Home [address] [place] [address] Name: NOT WANT TO GIVE, DOES Address: Home Name: DMITRY HEARD Address: [place] [address] [place] [address]
--- OUTSIDE RECORDS SUMMARY | 2023-05-11 07:54 | XMS_ITS | Continuity of Care Document ---
Author Name Unknown Organization [facility] Address [address] [place] [phone] Care Team Providers Care Agriculture Research Director Name Role Phone MARTIN GILLETTE Primary Care Physician Encounter [facility] NBR [id number] Date(s): 11/28/22 - 11/28/[address] [address]- [place] Encounter Diagnosis Pain in left knee(Final) - Discharge Disposition: Home or Self Care Attending Physician: Bj Everett MD Admitting Physician: Bj Everett MD Referring Physician: Bj Everett MD Allergies, Adverse Reactions, Alerts Substance Reaction Severity Status penicillin Anaphylaxis Moderate Active Tape skin irritation Moderate Active Assessment and Plan Future Scheduled Tests Radiology* MRI Knee w/o Contrast Left 11/28/22 * XR Knee Complete 4+ Views Left 11/23/22 Medications lisinopril 20 mg oral tablet 90 EA, TAKE 1 TABLET BY MOUTH EVERY DAY, 0 Refill(s) Start Date: 11/28/22 Status: Ordered sertraline 50 mg oral tablet 90 EA, TAKE 1 TABLET BY MOUTH EVERY DAY, 0 Refill(s) Start Date: 11/28/22 Status: Ordered Problem List Condition Confirmation Course Effective Dates Status Health St atus Informant Biceps tendinitis Confirmed Active Internal derangement of left knee Confirmed Active Impingement syndrome of right shoulder region Confirmed Active Right rotator cuff syndrome Confirmed Active Results Radiology Reports * Exam Date Time Procedure Performing Provider Status 11/28/22 8:53 AM XR Knee Complete 4+ Views Left Shirley Low; Auth (Verified) Notes: (XR Knee Complete 4+ Views Left) Reason For Exam: left knee pain XR Knee Complete 4+ Views Left EXAM DESCRIPTION: XR Knee Complete 4+ Views Left 11/28/2022 INDICATION: LEFT KNEE PAIN COMPARISON: None FINDINGS: No acute fracture, dislocation or bone destructive process. Joint spaces are maintained. No radiographic foreign bodies are seen. IMPRESSION: 1. No acute fracture, dislocation or bone destructive process. JOB #: [id number] Final Signed by: [place] MD Signed (Electronic Signature): 11/28/2022 9:08 am Social History Social History Type Response Tobacco Never tobacco user T obacco Use:. Sex Patient Care team information Care Team Personnel Name: MARTIN GILLETTE Position: No Access Member Role: Primary Care Physician Address: Address: [address] [place] [address] Care Team Related Persons Name: MAGDI BAILEY Address: [address] Name: NOT WANT TO GIVE, DOES Name: DMITRY HEARD Address: [address]
--- OUTSIDE RECORDS SUMMARY | 2023-05-11 07:54 | XMS_ITS | Continuity of Care Document ---
Author Name Unknown Organization [facility] Address [address] [place] [address] Care Team Providers Care Tin Pourer Name Role Phone ОЛЬГА GILLETTE Primary Care Physician [phone] Encounter [facility] NBR [id number] Date(s): 11/28/22 - 11/28/22 [facility] [address], [place] [address] Encounter Diagnosis Internal derangement of left knee(Discharge Diagnosis) - 11/28/22 Discharge Disposition: Home or Self Care Attending Physician: Bj Everett MD Referring Physician: ОЛЬГА GILLETTE Allergies, Adverse Reactions, Alerts Substance Reaction Severity Status penicillin Anaphylaxis Moderate Active Tape skin irritation Moderate Active Assessment and Plan Future Scheduled Tests Radiology* MRI Knee w/o Contrast Left 11/28/22 * XR Knee Complete 4+ Views Left 11/23/22 Functional Status 11/28/22 Other exposure to Infectious Disease Non e Medications lisinopril 20 mg oral tablet 90 [...] Active Right rotator cuff syndrome Confirmed Active Vital Signs Most recent to oldest [Reference Range]: 1 Peripheral Pulse Rate [60-100 bpm] 77 bp m (11/28/22 8:50 AM) Blood Pressure [90-140/60-90 mmHg] 128/7 5mmHg (11/28/22 8:50 AM) Weight 107.95 kg (11/28/22 8:50 AM) Weight Measured (lbs) 237.989 lb (11/28/22 8:50 AM) Height 167.64 cm (11/28/22 8:50 AM) Height/Length Measured (inches) 66 inch (11/28/22 8:50 AM) BSA Measured 2.24 m2 (11/28/22 8:50 AM) Body Mass Index 38.41 kg/m2 (11/28/22 8:50 AM) Social History Social History Type Response Tobacco Never tobacco user T obacco Use:. Sex Hospital Discharge Instructions Follow Up Care 11/15/2022 12:48:45 With:MRI Address: When: Unknown Procedure note * Natalie Chinchilla: PERFORM Event Display: Procedure Note Authored Date: [id number] Physician Outpatient Note * Bj Everett MD: PERFORM Event Display: Office Clinic Note Physician Authored Date: [id number] CLAY ALONZO :1980 Age:42 years Sex:Female Visit Date:11/28/2022 Primary Care Physician: ОЛЬГА GILLETTE Chief Complaint LEFT KNEE PAIN History of Present Illness Please send a copy of this note to Dr. Ольга Gillette. ?? 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 The patient??states that ??3 months ago??she fell down acouple of steps and struck her left knee.?? The patient has since experienced medial knee pain and c atching.?? She denies??swelling, locking, or instability but has been limping.?? She has done physical therapy and has been consistent with an HEP. 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 The patient denies numbness or tingling. ??She states that her knee??will wake her if??her knees touch at night prompting herto sleep with a pillow between her knees.?? She has not found anti- inflammatories to be helpful. Physical Exam Vitals & Measurements HR:??77??(Peripheral)?? BP:??128/75?? SpO2:??99%?? HT:??167.64??cm?? WT:??107.95??kg?? BMI:??38.41?? Pain Score:??3?? BSA:??2.24?? The patient's left lower extremity is neurovascularly intact. ??Sensation and motor exam are intactdistally. ??All digits are warm and pink.?? A mild effusion of the knee is present. ??Range of motion of the knee is full but with pain on terminal flexion medially. ??Heidi's test positive medially.?? The knee was found to be stable to anterior, posterior, varus, and valgus stress.?? She demonstrates medial joint line tenderness only. Assessment/Plan 1.??Internal derangement of left knee??M23.92 Ordered: MRI Knee w/o Contrast Left, 11/28/22, Routine, Reason: Left knee question medial meniscal tear, No,No, Transport Mode: Ambulatory, Internal derangement of left knee ?? The patient demonstrates evidence of left medial sided knee pain secondary to possible medial meniscal tear. ??The treatment options were discussed with the patient was been on a course of nonoperative management including physical therapy without relief.?? I would therefore like to obtain an MRI to further evaluate this. ??The patient verbalized understanding and agreed with the above plan. ??Wewill see the patient back after the study for discussion of the results. ??All questions were answered. ?? I personally reviewed the patient's referral, outside consultation notes, previous radiographic images and results, and relevant tests. ?? Thank you for the courtesy of this referral. Future Orders MRI Knee w/o Contrast Left, 11/28/22, Routine, Reason: Left knee question medial meniscal tear, No,No, Transport Mode: Ambulatory, Internal derangement of left knee Follow Up Instructions With When Contact Information MRI Additional Instructions: Problem List/Past Medical History Ongoing Biceps tendinitis Impingement syndrome of right shoulder region Internal derangement of left knee Right rotator cuff syndrome Historical No qualifying data Medications lisinopril 20 mg oral tablet sertraline 50 mg oral tablet Allergies Tape??(skin irritation) penicillin??(Anaphylaxis) Social History Electronic Cigarette/Vaping Electronic Cigarette Use: Never. Tobacco Never tobacco user Tobacco Use:. Diagnostic Results Diagnostic Study Interpretation: Indication for study: Left knee pain Views: 4 views of the left knee ?? I personally viewed and interpreted the radiographs in the generation of this report. ?? Findings: No fracture or dislocation is observed. ??Minimal medial joint space narrowing is present. ??The patellofemoral joint appears to be congruent. ??The lateral compartment is preserved. Electronically Signed on 11/28/22 05:26 PM Bj Everett MD Patient Care team information Care Team Personnel Name: ОЛЬГА GILLETTE Position: No Access Member Role: Primary Care Physician Address: Address: [address] [place] [address]- Care Team Related Persons Name: MAGDI BAILEY Address: [address] Name: NOT WANT TO GIVE, DOES Name: DMITRY HEARD Address: [address]
--- OUTSIDE RECORDS SUMMARY | 2023-05-11 07:54 | XMS_ITS | Continuity of Care Document ---
Author Name Unknown Organization [facility] Address [address] [place] [address] Care Team Providers Care Hotel Supplies Salesperson Name Role Phone MARTIN GILLETTE Primary Care Physician Encounter [facility] NBR [id number] Date(s): 12/20/22 - 12/20/22 [facility] [address] [place] [address]- [place] Discharge Disposition: Home Allergies, Adverse Reactions, Alerts Substance Reaction Severity Status penicillin Anaphylaxis Moderate Active Tape skin irritation Moderate Active Assessment and Plan Future Appointments Future Scheduled Tests Radiology* MRI Knee w/o Contrast Left 11/28/22 * XR Knee Complete 4+ Views Left 11/23/22 Medications hydrocortisone 1% topical cream 28 g, 0 Refill(s), APPLY A SMALL AMOUNT TOPICALLY TO THE AFFECTED AREA TWICE DAILY NEEDED, 0 Refill(s) Start Date: 12/14/22 Status: Ordered lisinopril 20 mg oral tablet 90 EA, TAKE 1 TABLET BY MOUTH EVERY DAY, 0 Refill(s) Start Date: 11/28/22 Status: Ordered phenazopyridine 100 mg oral tablet 6 EA, 0 Refill(s), TAKE 1 TABLET BY MOUTH THREE TIMES DAILY NEEDED FOR PAIN, 0 Refill(s) Start Date: 12/14/22 Status: Ordered sertraline 50 mg oral tablet 90 EA, TAKE 1 TABLET BY MOUTH EVERY DAY, 0 Refill(s) Start Date: 11/28/22 Status: Ordered sulfamethoxazole-trimethoprim 800 mg-160 mg oral tablet 6 EA, 0 Refill(s), TAKE 1 TABLET BY MOUTH TWICE DAILY UNTIL ALL TAKEN, 0 Refill(s) Start Date: 12/14/22 Status: Ordered Problem List Condition Confirmation Course Effective Dates Status Health St atus Informant Biceps tendinitis Confirmed Active Internal derangement of left knee Confirmed Active Impingement syndrome of right shoulder region Confirmed Active Right rotator cuff syndrome Confirmed Active Tear of medial meniscus of left knee Confirmed Active Social History Social History Type Response Tobacco Never tobacco user T obacco Use:. Sex Patient Care team information Care Team Personnel Name: MARTIN GILLETTE Position: No Access Member Role: Primary Care Physician Address: Address: [address] [place] [address]- Care Team Related Persons Name: MAGDI BAILEY Address: Home [address] [place] [address] Name: NOT WANT TO GIVE, DOES Name: DMITRY HEARD Address: Home [address] [place] [address]
[2023-05-11 14:50] LABS: HCT 37.7 % (36.0-46.0); HGB 12.8 g/dL (11.2-15.7); MCH 27.9 pg (27.0-33.0); MCV 82 fL (80-95); MPV 11.3 fL (8.0-11.0); Platelet Count 269 10^3/uL (130-400); RBC 4.58 10^6/uL (3.93-5.22); RDW-SD 38.9 fL; WBC 7.62 10^3/uL (4.4-10.8)
[2023-05-11 15:20] LABS: ALT 26 U/L (14-59); AST 10 U/L (15-37); Albumin 3.7 g/dL (3.4-5.0); Alkaline Phosphatase 62 U/L (46-116); Anion Gap 9.5 mmol/L (3-11); BUN 13 mg/dL (7-18); Bilirubin, Total 0.2 mg/dL (0.2-1.0); CO2 24.5 mmol/L (21.0-32.0); CREATININE 0.7 mg/dL (0.55-1.02); Calcium 9.2 mg/dL (8.5-10.1); Calculated LDL 121 mg/dL (<100); Chloride 103 mmol/L (98-107); Cholesterol 193 mg/dL (<200); Glucose 93 mg/dL (74-106); HDL Cholesterol 36 mg/dL (40-60); Potassium 4.2 mmol/L (3.5-5.1); Sodium 137 mmol/L (136-145); TSH (W/Ref FT4) 1.48 uIU/mL (0.36-3.74); Total Protein 6.7 g/dL (6.4-8.2); Triglyceride 180 mg/dL (<150)
[2023-05-11 15:39] LABS: Hemoglobin A1C 5.6 % (<5.7)
== END 2023-05-11 07:53 | disposition home or self-care (01) ==
LOC: NCHCN 07:52
PROVIDERS: PCP Family Medicine; Visit Provider Family Medicine
DX: I10 Essential (primary) hypertension (principal); R73.03 Prediabetes; F41.8 Other specified anxiety disorders
CPT/HCPCS: 80053; 80061; 85027; 83036; 84443

== ENCOUNTER 2023-07-16 18:22 | Outpatient (REF) | payer BC, SELFPAY ==
[2023-07-16 18:59] LABS: HCT 40.3 % (36.0-46.0); HGB 13.5 g/dL (11.2-15.7); MCH 28.1 pg (27.0-33.0); MCHC 33.5 % (32.0-36.0); MCV 84 fL (80-95); MPV 12.2 fL (8.0-11.0); Platelet Count 274 10^3/uL (130-400); RDW 12.9 % (11.7-14.6); RDW-SD 39.5 fL; WBC 8.73 10^3/uL (4.4-10.8)
[2023-07-16 19:21] LABS: Ferritin 36 ng/mL (8-252)
== END 2023-07-16 18:23 | disposition home or self-care (01) ==
LOC: NCHCN 18:22
PROVIDERS: PCP Family Medicine; Visit Provider Family Medicine
DX: R53.83 Other fatigue (principal)
CPT/HCPCS: 85027; 82728

== ENCOUNTER → 2023-08-20 02:08 | Outpatient (CLI) | payer BC, SELFPAY ==
--- NOTE | 2023-08-20 08:26 | DI.US_ITS ---
Exam(s) US BREAST LT COMPLETE MG MAMMO DIAGNOSTIC BI EXAM: MAMMO DIAGNOSTIC BI AND COMPLETE LEFT BREAST ULTRASOUND CLINICAL HISTORY: L breast nipple discharge,N64.52. TECHNIQUE: BILATERAL CC AND MLO mammographic images were obtained with 3D tomosynthesis technique an d utilizing computer aided detection (CAD). Also performed spot compression view of the left breast Complete left breast ultrasound was performed including all 4 quadrants, the retroareolar region, and the left axilla. COMPARISON: Prior mammograms were reviewed. This 43-year-old patient has been complaining of unilateral nonbloody left breast nipple discharge. She denies feeling a lump. Denies abscess symptoms. Denies breast-feeding FINDINGS: DIAGNOSTIC BILATERAL MAMMOGRAM: There has been no significant change in the appearance and distribution of the fibroglandular tissue. There are no CAD designations. No new spiculated masses nor malignant-appearing microcalcification groups. No new architectural distortion or skin thickening-traction. Additional spot compression 3D view of the retroareolar region does not reveal significant focal find ings. COMPLETE LEFT BREAST ULTRASOUND: No evidence of solid or significant cystic lesions in all 4 quadrants. No abnormally dilated ducts. Scanning of the left axilla is negative for adenopathy. IMPRESSION: No radiographic evidence of malignancy Negative complete left breast ultrasound Appropriate follow-up is repeat left breast imaging in 3 to 6 months if symptoms persist, earlier if she starts to feel a lump. The patient was informed of the findings and follow-up recommendations by myself prior to leaving the department today. BI-RADS Category 3 - 3 month - Probably Benign Finding: Recommend follow-up mammography in 3 months Breast Density - Category B - Scattered areas of fibroglandular density Breast density Category C or D implies that the patient has dense breast tissue. Dense breast tissue can make it harder to find cancer on a mammogram. Dense breast tissue is also associated with an incr eased risk of breast cancer. This information about the result of the mammogram report was provided to the patient to raise their awareness. Use this report when you speak with the patient about their risks for breast cancer, which includes their family history. At that time, you may recommend additional screening tests (Ultrasoun d or MRI) as these tests may add significant information. A negative radiographic report should not delay biopsy if a dominant or clinically suspicious mass is present. Up to ten percent of cancers are not identified on mammography. A negative report may reinforce clinical impression. Adenosis and dense breasts may obscure an underlying neoplasm. False positive reports average 6 to 10%. Patient will receive a letter notifying them of these results.
== END ==
PROVIDERS: PCP Family Medicine; Visit Provider Obstetrics & Gynecology Gynecology
DX: N64.52 Nipple discharge (principal); R92.322 Mammographic fibroglandular density, left breast
CPT/HCPCS: 76642; 77062; 77066; G0279

== ENCOUNTER 2023-08-22 13:50 | Outpatient (REF) | payer BC, SELFPAY ==
--- NOTE | 2023-08-22 15:45 | ENDOMET_PTH ---
PATIENT: Bell Hernandez LOC: [facility] U#:[id number] AGE/SX: 43/F ROOM: RE08/22/[address]: Kim Balbuena : 1980 BED: DIS: 08/22/2023 SPEC #: [id number] RECD: 08/22/23 17:58 STATUS: JENNI REReji #: [id number] IVON: 08/22/23 15:[address]: Kim Balbuena DEPT: Surgical Specimen RECD BY: Judy Duckworth ENTERED: 08/22/23 17:58 SP TYPE: Endomet OTHR DR: Ольга Lacey Tissues: 1 - ENDOMETRIUM BX/ELAN Procedures: GROSS AND MICRO LEVEL 4 Comments: [id number]
== END 2023-08-22 13:51 | disposition home or self-care (01) ==
LOC: LBN 13:50
PROVIDERS: PCP Family Medicine; Visit Provider Obstetrics & Gynecology Gynecology
DX: N93.9 Abnormal uterine and vaginal bleeding, unspecified (principal)
CPT/HCPCS: 88305

== ENCOUNTER 2023-08-28 03:56 | Outpatient (CLI) | payer BC, SELFPAY ==
[2023-08-28 11:24] LABS: HCT 38.9 % (36.0-46.0); HGB 13.1 g/dL (11.2-15.7); MCHC 33.7 % (32.0-36.0); MCV 86 fL (80-95); MPV 10.9 fL (8.0-11.0); Platelet Count 256 10^3/uL (130-400); RBC 4.51 10^6/uL (3.93-5.22); RDW 12.3 % (11.7-14.6); RDW-SD 39.2 fL; WBC 5.75 10^3/uL (4.4-10.8)
[2023-08-28 12:08] LABS: Anion Gap 10.8 mmol/L (3-11); BUN 11 mg/dL (7-18); CO2 25.2 mmol/L (21.0-32.0); CREATININE 0.8 mg/dL (0.55-1.02); Calcium 8.5 mg/dL (8.5-10.1); Chloride 104 mmol/L (98-107); Estimated GFR 92.54 (mL/min/1.73m2); Glucose 98 mg/dL (74-106); Sodium 140 mmol/L (136-145)
[2023-08-28 18:35] LABS: Prolactin 4.5 ng/mL (See Note)
== END 2023-08-28 03:57 | disposition home or self-care (01) ==
LOC: LBO 03:57
PROVIDERS: PCP Family Medicine; Visit Provider Obstetrics & Gynecology Gynecology
DX: Z01.818 Encounter for other preprocedural examination (principal); N64.52 Nipple discharge
CPT/HCPCS: 36415; 80048; 85027; 86850; 86900; 86901; 84146

== ENCOUNTER 2023-08-29 11:17 | Day surgery (SDC) | payer BC, SELFPAY ==
[2023-08-29] VITALS (11 sets, daily range): BP systolic 118–149; BP diastolic 74–97; PULSE 48–63; RESP 13–21; TEMP 36.4–36.6; O2SAT 94–98; BMI 34.2
[2023-08-29] MEDS: Lactated Ringers 1,000 ML 125 ML IV (12:23)
--- NOTE | 2023-08-29 12:53 | W.ANESPRE ---
General Info Date of Service Date Performed: 08/29/23 Height: 5 ft 8 in Weight: 102.1 kg Body Mass Index (BMI): 34.2 Surgical Procedure: Operation Date: 08/29/23 12:25 Proposed Procedure Side Surgeon nirmala Richardson Endometrial Ablation Kim Balbuena MD Meds Allergies and Home Medications Allergies Allergy/AdvReac Type Severity Reaction Status Date / Time Penicillins Allergy Severe ANAPHALACTI Verified 08/29/23 11:45 C Home Medication Medication Instructions Recorded lisinopril 20 mg tablet 20 mg PO DAILY 08/16/23 sulfamethoxazole 800 1 tab PO BID #6 tabs 08/22/23 mg-trimethoprim 160 mg tablet (Bactrim DS) sertraline 50 mg tablet 50 mg PO DAILY 08/27/23 Current Visit Medications: Current Medications Generic Name Dose Route Start Last Admin Trade Name Freq PRN Reason Stop Dose Admin Ringer's Solution 1,000 mls @ 125 mls/hr 08/29/23 06:00 08/29/23 12:23 IV 08/29/23 23:59 125 mls/hr INFUSION FANNY Administration IV Miscellaneous Supplies 1 each 08/29/23 06:00 Iv Access IV 08/29/23 23:59 DIRECTED FANNY Sodium Chloride 0 ml 08/29/23 06:00 Normal Saline Flush 10 Ml Syr IV 08/29/23 23:59 PRN PRN Sodium Chloride 0 ml 08/29/23 06:00 Normal Saline 10 Ml Vial IJ 08/29/23 23:59 DIRECTED PRN Sterile Water 0 ml 08/29/23 06:00 Water,Injection,Sterile 10 Ml Vial IJ 08/29/23 23:59 DIRECTED PRN PFSH Active Problems Active Problems: Problem Status Onset Code Hx of acute cystitis Z87.440 Physiological nipple discharge N64.52 Hemorrhoid K64.9 Perimenopausal vasomotor symptoms N95.1 Dysmenorrhea N94.6 Oligomenorrhea N91.5 Vaginitis N76.0 Dysuria R30.0 Asymmetrical sensorineural hearing loss H90.5 Medical History Medical History Skin lesion of breast Chronic pelvic pain in female 2007 onset. 2008 Neg Dx Laparoscopy 2012 pain resolved with 60lb wt loss. Polycystic ovaries Surgical History Surgical History colonoscopy Ligation of fallopian tube (~2007) Tonsillectomy and adenoidectomy section (~2003) wound infection R lateral margin. healed by secondary intention. daughter Rosalba. Diagnostic Laproscopy (~2007) no endometriosis or adhesions Tobacco Smoking/Tobacco Use Status: Never Passive smoking exposure: No Alcohol Alcohol Intake: never Substance Use Substance use: Never Substance use type: does not use Prental History History 1 Para Hx # Term Pregnancies Multiple births Hx # Pregnancies Ectopic pregnancies AB induced Hx Number of Living Children AB spontaneous Vital Signs and Lab Results Vital Signs Most Recent Vital Signs in EMR: Most Recent Vital Signs Temp Pulse Resp BP Pulse Ox 36.5 C 63 16 126/80 98 08/29/23 11:52 08/29/23 11:52 08/29/23 11:52 08/29/23 11:52 08/29/23 11:52 Point of Care Results Point of Care Results: POC- Test(urine) Negative 08/29/23 11:45 Lab Results Blood Type / Crossmatch: Patient ABO/Rh A Negative 08/28/23 Antibody Screen NEGATIVE 08/28/23 Complete Blood Count: White Blood Count 5.75 10^3/uL (4.4-10.8) 08/28/23 11:06 Red Blood Count 4.51 10^6/uL (3.93-5.22) 08/28/23 11:06 Hemoglobin 13.1 g/dL (11.2-15.7) 08/28/23 11:06 Hematocrit 38.9 % (36.0-46.0) 08/28/23 11:06 Platelet Count 256 10^3/uL (130-400) 08/28/23 11:06 Complete Metabolic Panel: Sodium 140 mmol/L (136-145) 08/28/23 11:06 Potassium 4.0 mmol/L (3.5-5.1) 08/28/23 11:06 Chloride 104 mmol/L (98-107) 08/28/23 11:06 Carbon Dioxide 25.2 mmol/L (21.0-32.0) 08/28/23 11:06 BUN 11 mg/dL (7-18) 08/28/23 11:06 Creatinine 0.8 mg/dL (0.55-1.02) 08/28/23 11:06 Est GFR (CKD-EPI 2020) 92.54 (mL/min/1.73m2) 08/28/23 11:06 Calcium 8.5 mg/dL (8.5-10.1) 08/28/23 11:06 Glucose 98 mg/dL (74-106) 08/28/23 11:06 Liver Function Panel: No Data to Display Coagulation Panel: No Data to Display Cardiac Panel: No Data to Display Arterial Blood Gas: No Data to Display Venous Blood Gas: No Data to Display Pancreas Panel: No Data to Display Thyroid Panel: No Data to Display Infectious Disease: No Data to Display Blood Cultures: No Data to Display Toxicology Panel: No Data to Display Panel: No Data to Display Anesthesia Assessment and Plan Anesthesia History Personal History: PONV Family History: No Family History of Anesthesia Complications Exercise Tolerance Exercise Tolerance: Metabolic Equivalents>4 Pertinent Negatives Pertinent Negatives: No Symptoms of GERD, No Major Cardiovascular Symptoms or Complaints, No Major Pulmonary Symptoms or Complaints and No History of CVA/TIA Cardiac & Pulmonary Exam Cardiac Exam: Normal S1/S2 Heart Sounds Pulmonary Exam: Clear Bilateral Breath Sounds Implantable Cardiac Device Does patient have a Pacemaker or an ICD?: No Airway Exam Known Difficult Airway: No Mallampati Class: 3 Mouth Opening: Normal (> 3cm) Thyromental Distance: Greater than 3 cm Neck Range of Motion: Full ROM Neck Circumference: Normal Teeth Condition: Normal Dentition ASA Classification ASA Score: ASA 2 Emergency Case?: No NPO Status NPO Status: NPO Clears >2 hours, Solids >8 hours Status Status: Negative HCG Anesthesia Plan Resuscitation Status: Full Code Anesthesia Technique: General Anesthesia Airway Planned: LMA Monitors Used: Standard Monitors
[2023-08-29] MEDS: Bupivacaine 0.25% Pres-Free 30 ML VIAL (13:58)
--- NOTE | 2023-08-29 14:28 | W.PM.DSUDISC ---
Date of service: 08/29/23 Time of Service: 14:28 Discharge Plan Disposition Patient Disposition: Home Discharge Details Reason For Visit: hydrothermal endometrial ablation Attending Provider: Kim Balbuena Primary Care Provider: Ольга Lacey Home Meds and New Rx's Prescriptions: No Action lisinopril 20 mg tablet 20 mg PO DAILY sulfamethoxazole-trimethoprim [Bactrim DS] 800-160 mg tablet 1 tab PO BID Qty: 6 4RF Hold Instructions: Pt Stopped/Never Started sertraline 50 mg tablet 50 mg PO DAILY Patient Comments: TAKE 1 TABLET BY MOUTH DAILY Discharge Instructions Additional Instructions: You will have light uterine bleeding for the next 24 hours followed by watery vaginal discharge that may last up to 4 weeks. The cramping will improve in the next 12 hours. Take Ibuprofen 600mg ( 3 tablets of 200mg of over the counter Ibuprofen) also taken every 6 hours for pain. You may also take Acetaminophen 325mg every 6 hours as needed for pain. If you have pain not relieved with Ibuprofen or Acetaminophen then a prescription for Percocet 5/325mg will be called into your pharmacy. Take one tablet every 6 hours for severe pain. Nothing in your vagina, no tampons, no intercourse until the vaginal discharge has stopped. Call Dr. Balbuena at [phone] if you have pain that it not improved with the pain medication, if you have a fever over 100.5 or you have nausea or vomiting that does not improve. Keep your followup appoint with Dr. Balbuena Discharge Orders Discharge Orders: Discharge Order (Routine); Ordered 08/29/23 Ordered By: Kim Balbuena DS: Diagnosis Discharge Diagnosis (1) History of endometrial ablation: Status: Acute (2) Abnormal uterine bleeding (AUB): Status: Acute
[2023-08-29] MEDS: fentaNYL 100 MCG/2 ML VIAL IVP (14:34)
--- NOTE | 2023-08-29 14:34 | W.PM.OP ---
Date of service: 08/29/23 Time of Service: 14:34 Operative Note Operative Note DATE OF PROCEDURE: 08/29/23 PRE-OP DIAGNOSIS: abnormal uterine bleeding POST-OP DIAGNOSIS: same PROCEDURE: Hydrothermal endometrial ablation SURGEON: Kim Balbuena Refer to Anesthesia Record ESTIMATED BLOOD LOSS: 0 PATHOLOGY: none sent COMPLICATIONS: None Patient was transported to: PACU Patient's condition: stable Indications: 42 yo female with a history of heavy menses preceeded by 1-2 months of amenorrhea. On the first day of her cycle she will require a tampon change every 1/2 hours. Pt had a normal endometrial biopsy prior to the procedure. Findings: Smooth walled uterine cavity with thickened endometrial lining. Procedure Description: Patient was taken to the operating room where she was placed in the dorsal supine position and general anesthesia was administered without difficulty. She was then placed in the dorsolithotomy position in yellowfin stirrups and prepped and draped in the usual sterile fashion. SCDs were in place. No antibiotics were required. After a surgical timeout was performed a bivalve speculum was placed in the patient's vagina. The anterior lip of the cervix was infiltrated with 1 cc 0.25% bupivacaine and a single-tooth tenaculum was used to grasp the anterior lip of the cervix. A paracervical block was performed with infiltration of 5 cc of 0.25% bupivacaine at the 4 o'clock and 8 o'clock paracervical spaces respectively. Cervix was then sequentially dilated to a maximum of 18 Dickey. A hysteroscope sheath was inserted into the uterine cavity and a cavity assessment was performed with the above noted findings. The tip of the hysteroscope sheath was positioned to allow visualization of the uterine fundus, both tubal ostia in the midportion of the uterine cavity. The sheath was protected from the vaginal muniz by the speculum. Heated isotonic saline was then administered via gravity into the uterus through the sheath. Once a safety assessment was performed the treatment phase of the procedure began and under direct observation the uterine cavity was treated with heated isotonic saline at 90 ?C for 10 minutes. Intrauterine cool-down phase was performed for 1 minute. The uterine cavity was carefully assessed with hysteroscopy and the uterus was noted to have a satisfactory treatment effect and the integrity of the uterine cavity was confirmed. After these findings the hysteroscope was removed as were the instruments removed from the vagina. Tenaculum site was noted to be hemostatic. The patient was placed in the dorsal supine position successfully awakened from anesthesia and transported to day surgery unit in stable condition. All sponge lap needle counts correct x2
--- NOTE | 2023-08-29 15:07 | W.ANESPOSTOP ---
Postoperative Evaluation Date, Time and Location Date Performed: 08/29/23 Time Performed: 15:08 Patient Location: PACU Vital Signs Most Recent Imported Vital Signs: Most Recent Vital Signs Temp Pulse Resp BP Pulse Ox 36.4 C L 49 L 21 140/85 96 08/29/23 15:01 08/29/23 15:01 08/29/23 15:01 08/29/23 15:01 08/29/23 15:01 Pain Score Most Recent Pain Score: Most Recent Pain Score Pain Level 3 08/29/23 15:01 Assessment Mental Status: Awake (Alert & Oriented to Patient Baseline) Airway and Respiratory Function: Patent airway with normal (patient baseline) respiratory exam Cardiovascular Function: Hemodynamically Stable Hydration Status: Adequately Hydrated Nausea & Vomiting: No Nausea or Vomiting Pain: Pain is tolerable per patient Peripheral Nerve Block: Patient did not receive a nerve block
[2023-08-29] MEDS: oxyCODONE 5 mg/Acetaminophen 325 mg TAB PO (15:34)
== END 2023-08-29 16:24 | disposition home or self-care (01) ==
PROVIDERS: PCP Family Medicine; Visit Provider Obstetrics & Gynecology Gynecology
PROC: (CPT 58353; principal; 2023-08-29 12:15)
DX: N93.9 Abnormal uterine and vaginal bleeding, unspecified; R93.89 Abnormal findings on diagnostic imaging of other specified body structures; N85.8 Other specified noninflammatory disorders of uterus
CPT/HCPCS: 58563; 81025; J0131; J0665; J1100; J1885; J2001; J2405; J2704; J3010; J3475

== ENCOUNTER 2023-09-04 10:04 | Outpatient (REF) | payer BC, SELFPAY | END 2023-09-04 10:05 | disposition home or self-care (01) | LOC: LBN 10:04 | PROVIDERS: PCP Family Medicine; Visit Provider Obstetrics & Gynecology Gynecology | DX: R10.2 Pelvic and perineal pain (principal); R82.998 Other abnormal findings in urine; Z87.440 Personal history of urinary (tract) infections | CPT/HCPCS: 87086 ==

== ENCOUNTER 2023-09-06 08:50 | Day surgery (SDC) | payer BC, SELFPAY ==
--- NOTE | 2023-09-06 07:33 | HPE_ITS ---
Date of service: 09/05/23 Time of Service: 19:00 Assessment and Plan Assessment and plan (1) Hematometra: Status: Acute Assessment and plan: Informed consent was obtained. I counseled the patient that the D&C may result in uterine puncture infection damage to surrounding structures. I also counseled her that we may not be successful in opening the internal os or removing the contents of the uterine cavity to allow for sufficient pain relief. Her questions were answered she will be n.p.o. after midnight no labs need to be obtained at this time. (2) History of endometrial ablation: Status: Acute History of Present Illness History of Present Illness Chief Complaint: hematometrea Narrative: 43 yo female who presents for an unscheduled postop visit after a hydrothermal endometrial ablation performed on 08/29/23. The procedure was uncomplicated and pt was discharged to home from SDU. She was comfortable until the evening of Sunday09/01/23. She reported strong uterine cramping and pain not alleviated with NSAIDs and Percocet. She was seen in [facility] office Sunday09/04/23 and the uterine cavity was drained using a plastic uterine dilator with approximately 15cc was released. Pt reports that her discomfort subsided until Sunday evening when the cramping returned. She was seen in the office and a repeat drainage procedure was performed. 5cc of serous sanguineous fluid was drained from the uterine cavity. Once again there was minimal resistance to the uterine dilator when the uterine cavity was entered. With pt's verbal permission a single tooth tenaculum was applied to the anterior lip of the cervix and a EMBx pipelle inserted into the uterine cavity with little resistance. Upon entry into the cavity dark red/brown blood was released. I counseled the patient regarding need for assessment of uterine cavity and internal os and she agreed to a hysteroscopy & D&C on 09/06/23. Review of Systems Narrative: no fever, no change in bowel or bladder habits, no N&V,no malodorous vaginal discharge. + pelvic pain and uterine cramping. All systems reviewed & are unremarkable except as noted in HPI and below PFSH All Active Problems (Updated 09/06/23 @ 07:33 by Kim Balbuena MD) Hematometra (Acute) Postop check (Acute) Pelvic pain (Acute) Uterine cramping (Acute) Abnormal uterine bleeding (AUB) (Acute) History of endometrial ablation (Acute) 08/29/23 Hx of acute cystitis (Acute) Physiological nipple discharge (Acute) Hemorrhoid (Acute) 07/2022. Perianal fissure. Rx with 2.5% Hydrocortisone. 10/2022. Stop steroid, apply vaseline. Perimenopausal vasomotor symptoms (Acute) No labs done. Episodic. Dysmenorrhea (Acute) Oligomenorrhea (Acute) Vaginitis (Acute) Dysuria (Acute) Asymmetrical sensorineural hearing loss (Acute) Medical History (Updated 09/06/23 @ 07:33 by Kim Balbuena MD) Skin lesion of breast Chronic pelvic pain in female 2007 onset. 2007 Neg Dx Laparoscopy 2012 pain resolved with 60lb wt loss. Polycystic ovaries Surgical History (Updated 09/06/23 @ 07:53 by Kim Balbuena MD) colonoscopy Ligation of fallopian tube (~2007) Tonsillectomy and adenoidectomy section (~2003) wound infection R lateral margin. healed by secondary intention. daughter Rosalba. Diagnostic Laproscopy (~2007) no endometriosis or adhesions Family History Grandfather Heart disease Grandmother Diabetes Personal history of malignant neoplasm Paternal GM with Breast, Ovarian and colon CA Hyperlipidemia Mother H/O abdominal hysterectomy for AUB. Social History (Updated 09/02/22 @ 11:36 by Kim Balbuena MD) Smoking/Tobacco Use Status: Never Smoking risk assessment performed?: Yes Alcohol Intake: never Drug use: Never Substance use type: does not use Household members: children and other Details: D- Rosalba. 07/2022 [facility]. 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 Sexually active: No What type of physical activity do you participate in: weight lifting and additional Details: wt 235 lbs. Bench press 200lbs. Do you feel safe at home: Yes Do you feel safe in your relationship?: Yes Female Reproductive History Menstrual Duration of menses: 3-5 days control method: permanent sterilization History History 1 Para Hx # Term Pregnancies Multiple births Hx # Pregnancies Ectopic pregnancies AB induced Hx Number of Living Children AB spontaneous Meds Allergies and Home Medications Allergies Allergy/AdvReac Type Severity Reaction Status Date / Time Penicillins Allergy Severe ANAPHALACTI Verified 09/04/23 08:52 C Home Medications Medication Instructions Recorded Confirmed Type lisinopril 20 mg tablet 20 mg PO DAILY 08/16/23 09/05/23 History sulfamethoxazole 800 1 tab PO BID #6 tabs 08/22/23 09/05/23 Rx mg-trimethoprim 160 mg tablet (Bactrim DS) sertraline 50 mg tablet 50 mg PO DAILY 08/27/23 09/05/23 History oxycodone-acetaminophen 5 mg-325 1 tab PO Q6H PRN pain #10 tabs 09/03/23 09/05/23 Rx mg tablet (Percocet) Exam Narrative Exam Narrative: tearful. Const General: in distress moderate Nutritional Appearance: well nourished Orientation: alert, awake and oriented x3 Neck Neck: normal visual inspection Chest Chest: deferred Resp Effort & Inspection: normal respiratory effort Auscultation: clear to auscultation bilaterally Cardio Rate: regular rate Rhythm: regular rhythm GI Inspection: normal to inspection Palpation: soft, no hepatosplenomegaly and no masses Rectal Exam - female: visual inspection normal External Female Exam: normal external appearance and normal appearance of the urethra Other: With pt's verbal permission the cervix was cleansed with Betadine, the aterior lip of the cervix was infiltrated with 1cc of 1% Lidocaine and a single tooth tenaculum was applied to the anterior lip of the cervix. An EMBx pipelle inserted into the uterine cavity with little resistance. Upon entry into the cavity 5cc of serous sanguineous dicharge was released. This was nutrition technician and not as viscus as the blood that was released from her uterine cavity the day previous. Once the discharge had subsided then tenaculum was removed from the cervix and instruments removed from the vagina. The tenaculum site was hemostatic. Skin General skin exam: no rashes or lesions noted Extrem General: normal to inspection Psych Appearance: grossly normal Mental Status: mental status grossly normal Speech and Movement: speech and movement normal Mood: anxious mood Affect: anxious affect Time Spent Time spent with Patient: 40-54 minutes Time was spent: preparing to see the patient(eg.review tests), obtaining and/or reviewing separately [facility], counseling the patient and care coordination
[2023-09-06 09:11] VITALS: BP 128/81; PULSE 72; RESP 16; TEMP 36.6; O2SAT 98
[2023-09-06] MEDS: Lactated Ringers 1,000 ML 125 ML IV (09:15)
[2023-09-06] MEDS: DOXYCYCLINE 100 MG in Normal Saline 100 ML IVPB (10:43)
[2023-09-06 11:00] VITALS: BMI 37.0
--- NOTE | 2023-09-06 11:00 | W.ANESPRE ---
General Info Date of Service Date Performed: 09/06/23 Height: 5 ft 6 in Weight: 104 kg Body Mass Index (BMI): 37.0 Surgical Procedure: Operation Date: 09/06/23 10:40 Proposed Procedure Side Surgeon p Dilation & Curettage with Hysteroscopy Kim Balbuena MD Meds Allergies and Home Medications Allergies Allergy/AdvReac Type Severity Reaction Status Date / Time Penicillins Allergy Severe ANAPHALACTI Verified 09/06/23 09:09 C Home Medication Medication Instructions Recorded lisinopril 20 mg tablet 20 mg PO DAILY 08/16/23 sulfamethoxazole 800 1 tab PO BID #6 tabs 08/22/23 mg-trimethoprim 160 mg tablet (Bactrim DS) sertraline 50 mg tablet 50 mg PO DAILY 08/27/23 oxycodone-acetaminophen 5 mg-325 1 tab PO Q6H PRN pain #10 tabs 09/03/23 mg tablet (Percocet) Current Visit Medications: Current Medications Generic Name Dose Route Start Last Admin Trade Name Freq PRN Reason Stop Dose Admin Ringer's Solution 1,000 mls @ 125 mls/hr 09/06/23 06:00 09/06/23 09:15 IV 09/06/23 23:59 125 mls/hr INFUSION FANNY Administration Doxycycline Hyclate 100 mg/ 100 mls @ 100 mls/hr 09/06/23 09:00 09/06/23 10:43 Sodium Chloride IVPB 10/06/23 08:59 100 mls/hr PREOP FANNY Administration IV Miscellaneous Supplies 1 each 09/06/23 06:00 Iv Access IV 09/06/23 23:59 DIRECTED FANNY Sodium Chloride 0 ml 09/06/23 06:00 Normal Saline Flush 10 Ml Syr IV 09/06/23 23:59 PRN PRN Sodium Chloride 0 ml 09/06/23 06:00 Normal Saline 10 Ml Vial IJ 09/06/23 23:59 DIRECTED PRN Sterile Water 0 ml 09/06/23 06:00 Water,Injection,Sterile 10 Ml Vial IJ 09/06/23 23:59 DIRECTED PRN PFSH Active Problems Active Problems: Problem Status Onset Code HTN (hypertension) I10 Hematometra N85.7 Postop check Z09 Pelvic pain R10.2 Uterine cramping N94.89 Abnormal uterine bleeding (AUB) N93.9 History of endometrial ablation Z98.890 Hx of acute cystitis Z87.440 Physiological nipple discharge N64.52 Hemorrhoid K64.9 Perimenopausal vasomotor symptoms N95.1 Dysmenorrhea N94.6 Oligomenorrhea N91.5 Vaginitis N76.0 Dysuria R30.0 Asymmetrical sensorineural hearing loss H90.5 Medical History Medical History (Updated 09/06/23 @ 09:10 by Tye Baez) Skin lesion of breast Chronic pelvic pain in female 2007 onset. 2008 Neg Dx Laparoscopy 2013 pain resolved with 60lb wt loss. Polycystic ovaries Surgical History Surgical History (Updated 09/06/23 @ 07:53 by Kim Balbuena MD) colonoscopy Ligation of fallopian tube (~2007) Tonsillectomy and adenoidectomy section (~2003) wound infection R lateral margin. healed by secondary intention. daughter Rosalba. Diagnostic Laproscopy (~2007) no endometriosis or adhesions Tobacco Smoking/Tobacco Use Status: Never Passive smoking exposure: No Alcohol Alcohol Intake: never Substance Use Substance use: Never Substance use type: does not use Prental History History 1 Para Hx # Term Pregnancies Multiple births Hx # Pregnancies Ectopic pregnancies AB induced Hx Number of Living Children AB spontaneous Vital Signs and Lab Results Vital Signs Most Recent Vital Signs in EMR: Most Recent Vital Signs Temp Pulse Resp BP Pulse Ox 36.6 C 72 16 128/81 98 09/06/23 09:11 09/06/23 09:11 09/06/23 09:11 09/06/23 09:11 09/06/23 09:11 Point of Care Results Point of Care Results: POC- Test(urine) Negative 09/06/23 09:11 Lab Results Blood Type / Crossmatch: Patient ABO/Rh A Negative 08/28/23 Antibody Screen NEGATIVE 08/28/23 Complete Blood Count: White Blood Count 5.75 10^3/uL (4.4-10.8) 08/28/23 11:06 Red Blood Count 4.51 10^6/uL (3.93-5.22) 08/28/23 11:06 Hemoglobin 13.1 g/dL (11.2-15.7) 08/28/23 11:06 Hematocrit 38.9 % (36.0-46.0) 08/28/23 11:06 Platelet Count 256 10^3/uL (130-400) 08/28/23 11:06 Complete Metabolic Panel: Sodium 140 mmol/L (136-145) 08/28/23 11:06 Potassium 4.0 mmol/L (3.5-5.1) 08/28/23 11:06 Chloride 104 mmol/L (98-107) 08/28/23 11:06 Carbon Dioxide 25.2 mmol/L (21.0-32.0) 08/28/23 11:06 BUN 11 mg/dL (7-18) 08/28/23 11:06 Creatinine 0.8 mg/dL (0.55-1.02) 08/28/23 11:06 Est GFR (CKD-EPI 2020) 92.54 (mL/min/1.73m2) 08/28/23 11:06 Calcium 8.5 mg/dL (8.5-10.1) 08/28/23 11:06 Glucose 98 mg/dL (74-106) 08/28/23 11:06 Liver Function Panel: No Data to Display Coagulation Panel: No Data to Display Cardiac Panel: No Data to Display Arterial Blood Gas: No Data to Display Venous Blood Gas: No Data to Display Pancreas Panel: No Data to Display Thyroid Panel: No Data to Display Infectious Disease: No Data to Display Blood Cultures: No Data to Display Toxicology Panel: No Data to Display Panel: No Data to Display Anesthesia Assessment and Plan Anesthesia History Personal History: PONV Family History: No Family History of Anesthesia Complications Exercise Tolerance Exercise Tolerance: Metabolic Equivalents>4 Pertinent Negatives Pertinent Negatives: No Symptoms of GERD, No Major Cardiovascular Symptoms or Complaints, No Major Pulmonary Symptoms or Complaints and No History of CVA/TIA Cardiac & Pulmonary Exam Cardiac Exam: Normal S1/S2 Heart Sounds Pulmonary Exam: Clear Bilateral Breath Sounds Implantable Cardiac Device Does patient have a Pacemaker or an ICD?: No Airway Exam Known Difficult Airway: No Mallampati Class: 3 Mouth Opening: Normal (> 3cm) Thyromental Distance: Greater than 3 cm Neck Range of Motion: Full ROM Neck Circumference: Normal Teeth Condition: Normal Dentition ASA Classification ASA Score: ASA 2 Emergency Case?: No NPO Status NPO Status: NPO Clears >2 hours, Solids >8 hours Status Status: Negative HCG Anesthesia Plan Resuscitation Status: Full Code Anesthesia Technique: General Anesthesia Airway Planned: Natural Airway Monitors Used: Standard Monitors
[2023-09-06] MEDS: Bupivacaine 0.25% Pres-Free 30 ML VIAL (11:26)
--- NOTE | 2023-09-06 11:36 | ENDOMET_PTH ---
PATIENT: Bell Hernandez LOC: [facility] U#:[id number] AGE/SX: 43/F ROOM: RE09/06/[address]: Kim Balbuena : 1980 BED: DIS: 09/06/2023 SPEC #: [id number] RECD: 09/06/23 13:46 STATUS: JENNI REQ #: [id number] IVON: 09/06/23 11:[address]: Kim Balbuena DEPT: Surgical Specimen RECD BY: Judy Duckworth ENTERED: 09/06/23 13:47 SP TYPE: Endomet OTHR DR: Ольга Lacey Tissues: 1 - ENDOMETRIUM BX/ELAN Procedures: GROSS AND MICRO LEVEL 4 Comments: [id number]
[2023-09-06 11:46] VITALS: BP 96/59; PULSE 57; RESP 16; TEMP 36.7; O2SAT 92
--- NOTE | 2023-09-06 11:55 | PDOC.DSDIS_ITS ---
Date of service: 09/06/23 Time of Service: 11:56 Discharge Plan Disposition Patient Disposition: Home Condition: Fair Discharge Details Reason For Visit: evaluate endometrial cavity Attending Provider: Kim Balbuena Primary Care Provider: Ольга Lacey Home Meds and New Rx's Prescriptions: No Action lisinopril 20 mg tablet 20 mg PO DAILY oxycodone-acetaminophen [Percocet] 5-325 mg tablet 1 tab PO Q6H MDD 4 PRN (Reason: pain) Qty: 10 0RF sulfamethoxazole-trimethoprim [Bactrim DS] 800-160 mg tablet 1 tab PO BID Qty: 6 4RF Hold Instructions: Pt Stopped/Never Started sertraline 50 mg tablet 50 mg PO DAILY Patient Comments: TAKE 1 TABLET BY MOUTH DAILY Discharge Instructions Additional Instructions: Take Dilaudid 2mg every 4-6 hours for severe pain. Also take Ibuprofen 600mg of over the counter medication every 6hrs as needed for pain. Acetaminophen 325mg every 6 hours as needed for pain. I will prescribe an antibiotic Clindamycin 150mg one tablet every 8 hours until it is completed. 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 Stand Alone Forms: DSU Post UNIT SECY Surg W/O Incision Activity:: Activity as Tolerated Diet:: As Tolerated Discharge Orders Discharge Orders: Discharge Order (Routine); Ordered 09/06/23 Ordered By: Kim Balbuena DS: Diagnosis Discharge Diagnosis (1) History of endometrial ablation: Status: Acute (2) Pelvic pain: Status: Acute (3) Uterine cramping: Status: Acute
[2023-09-06 12:14] LABS: HCT 36.9 % (36.0-46.0); HGB 12.2 g/dL (11.2-15.7); MCH 28.7 pg (27.0-33.0); MCHC 33.1 % (32.0-36.0); MCV 87 fL (80-95); MPV 10.6 fL (8.0-11.0); Platelet Count 228 10^3/uL (130-400); RBC 4.25 10^6/uL (3.93-5.22); RDW 12.5 % (11.7-14.6); RDW-SD 39.8 fL; WBC 6.19 10^3/uL (4.4-10.8)
[2023-09-06 12:26] VITALS: BP 108/63; PULSE 60; RESP 16; TEMP 36.1; O2SAT 95
[2023-09-06 12:29] LABS: ALT 22 U/L (14-59); AST 9 U/L (15-37); Albumin 3.5 g/dL (3.4-5.0); Alkaline Phosphatase 55 U/L (46-116); Anion Gap 10.3 mmol/L (3-11); BUN 8 mg/dL (7-18); Bilirubin, Total 0.3 mg/dL (0.2-1.0); CO2 26.7 mmol/L (21.0-32.0); CREATININE 0.7 mg/dL (0.55-1.02); Calcium 8.4 mg/dL (8.5-10.1); Chloride 105 mmol/L (98-107); Estimated GFR 108.62 (mL/min/1.73m2); Glucose 99 mg/dL (74-106); Sodium 142 mmol/L (136-145); Total Protein 6.3 g/dL (6.4-8.2)
--- NOTE | 2023-09-06 12:32 | W.ANESPOSTOP ---
Postoperative Evaluation Date, Time and Location Date Performed: 09/06/23 Time Performed: 12:33 Patient Location: Day Surgery Unit Vital Signs Most Recent Imported Vital Signs: Most Recent Vital Signs Temp Pulse Resp BP Pulse Ox 36.1 C L 60 16 108/63 95 09/06/23 12:26 09/06/23 12:26 09/06/23 12:26 09/06/23 12:26 09/06/23 12:26 Pain Score Most Recent Pain Score: Most Recent Pain Score Pain Level 1 09/06/23 12:26 Assessment Mental Status: Awake (Alert & Oriented to Patient Baseline) Airway and Respiratory Function: Patent airway with normal (patient baseline) respiratory exam Cardiovascular Function: Hemodynamically Stable Hydration Status: Adequately Hydrated Nausea & Vomiting: No Nausea or Vomiting Pain: Pain is tolerable per patient Peripheral Nerve Block: Patient did not receive a nerve block
--- NOTE | 2023-09-11 11:29 | ROE_ITS ---
Date of service: 09/11/23 Time of Service: 11:30 Operative Note Operative Note DATE OF PROCEDURE: 09/06/23 PRE-OP DIAGNOSIS: Post endometrial ablation uterine pain. Hematometria POST-OP DIAGNOSIS: other (Post endometrial ablation uterine pain. ) PROCEDURE: diagnostic hyteroscopy, uterine curettage. SURGEON: Kim Balbuena Refer to Anesthesia Record ESTIMATED BLOOD LOSS: 5 PATHOLOGY: other (endometrial curettings to pathology.) COMPLICATIONS: None Patient was transported to: PACU Patient's condition: stable Indications: 43 yo female who presents for an unscheduled postop visit after a hydrothermal endometrial ablation performed on 08/29/23. The procedure was uncomplicated and pt was discharged to home from SDU. She was comfortable until the evening of Sunday09/01/23. She reported strong uterine cramping and pain not alleviated with NSAIDs and Percocet. She was seen in [facility] office Sunday09/04/23 and repeat drainage procedure was performed and 5cc of serous released. On the day of surgery she reported continued uterine pain with minimal uterine discharge. Findings: Uterus sounded to 10cm. No resistance at internal os to uterine dilators. Minimal discharge from uterus after entry. No evidence of narrowing of endocervical canal and or blockage of internal os. Appropriate post ablation ap pearance of uterine cavity with endometrial muniz pale and shaggy. No evidence of breach of the uterine cavity and no evidence of active bleeding at the uterine cornua or uterine fundus. Procedure Description: Patient was brought to the operating room where she is placed in the dorsal supine position and monitored anesthesia care was administered. SCDs were placed. 100mg of Doxcycline as administered IV prior to start of procedure. She was prepped and draped in the usual sterile fashion. A surgical timeout was performed. A bivalve speculum was placed into the vagina and the anterior lip of the cervix was infiltrated with 0.25% Marcaine without epinephrine. Single- tooth tenaculum was used to grasp the anterior lip of the cervix and a p aracervical block was performed with 0.25% Marcaine without epinephrine with 5 cc injected into the 4 and 8:00 paracervical spaces respectively. Uterine cavity and cervical canal was sounded to 10cm. The cervix was sequentially dilated to a maximum of 817 Dickey and a hysteroscope was introduced into the uterine cavity with normal saline as the distention medium. Under direct visualization the uterine cavity and endocervical canal were inspected with the above noted findings. There was no evidence of an intracavitary obstruction or active uterine bleeding. The hysteroscope was removed and the a banjo currette was inserted into the uterine cavity and the uterine cavity was gently curetted in all four quadrants and the endometrial currettings passed off of the operative field. The tenaculum was removed from the anterior lip of the cervix and the tenaculum site was noted to be hemostatic. All instruments removed from the patient's vagina. She was placed in the dorsal supine position, awakened and transported to recovery area in stable condition. All sponge lap and needle counts are correct x2.
== END 2023-09-06 13:00 | disposition home or self-care (01) ==
PROVIDERS: PCP Family Medicine; Visit Provider Obstetrics & Gynecology Gynecology
PROC: 0UDB8ZZ Extraction of Endometrium, Via Natural or Artificial Opening Endoscopic (ICD-10-PCS; CPT 58558; principal; 2023-09-06 10:30)
DX: N85.7 Hematometra (principal); R10.2 Pelvic and perineal pain; R87.9 Unspecified abnormal finding in specimens from female genital organs
CPT/HCPCS: 58558; 80053; 81025; 85027; 88305; J0131; J0665; J1100; J1885; J2001; J2250; J2469; J2704

== ENCOUNTER 2024-07-15 12:02 | Outpatient (CLI) | payer BC, SELFPAY ==
[2024-07-15 11:24] LABS: Hemoglobin A1C 5.9 % (<5.7)
[2024-07-15 11:46] LABS: BUN 12 mg/dL (7-18); CREATININE 0.9 mg/dL (0.55-1.02); Calcium 9.7 mg/dL (8.5-10.1); Chloride 103 mmol/L (98-107); Estimated GFR 79.85 (mL/min/1.73m2); Glucose 96 mg/dL (74-106); Potassium 4.1 mmol/L (3.5-5.1); Sodium 141 mmol/L (136-145)
== END 2024-07-15 12:03 | disposition home or self-care (01) ==
LOC: LBO 12:03
PROVIDERS: PCP Family Medicine; Visit Provider Family Medicine
DX: R73.03 Prediabetes (principal)
CPT/HCPCS: 36415; 80048; 83036

== ENCOUNTER 2024-07-18 15:26 | Outpatient (REF) | payer BC, SELFPAY ==
[2024-07-18 22:12] LABS: TSH (W/Ref FT4) 1.31 uIU/mL (0.36-3.74)
== END 2024-07-18 15:27 | disposition home or self-care (01) ==
LOC: NCHCN 15:26
PROVIDERS: PCP Family Medicine; Visit Provider Family Medicine
DX: R53.83 Other fatigue (principal)
CPT/HCPCS: 84443

== ENCOUNTER 2024-10-10 08:23 | Day surgery (SDC) | payer BC, SELFPAY ==
[2024-10-10 08:40] VITALS: BP 106/86; PULSE 71; RESP 18; TEMP 36.3; O2SAT 98
[2024-10-10] MEDS: Lactated Ringers 1,000 ML 80 ML IV (08:57)
--- NOTE | 2024-10-10 09:51 | COLE_ITS ---
Date of service: 10/10/24 Time of Service: 09:52 Colonoscopy Report Procedure Description: PROCEDURES PERFORMED: 1. Colonoscopy PREOPERATIVE DIAGNOSIS: Screening colonoscopy POSTOPERATIVE DIAGNOSIS: Grade 1 internal hemorrhoids, external hemorrhoids SURGEON: Darian Nam MD INDICATION FOR PROCEDURE: the patient is a 44-year-old woman due for her for screening colonoscopy. No family history of colon cancer, but she thinks her mother had polyps. She has no symptoms of concern. FINDINGS: No polyps. No inflammation. Some mild hemorrhoid disease is present. SURVEILLANCE interval/FOLLOW-UP: 10 years SPECIMENS: None EBL: Minimal COMPLICATIONS: None QUALITY of prep: Excellent Procedure in detail: The patient gave written consent and was in agreement with the indications, the potential risks as well as the benefits of the procedure. They were taken to the endoscopy suite and laid in the left lateral decubitus position. A timeout was performed and anesthesia was administered which was tolerated well. I started the procedure. Digital rectal and visual examination was performed and grossly within normal limits. A well-lubricated flexible colonoscope was then introduced and passed without any notable difficulty all the way to the cecum identified by the ileocecal valve and the appendiceal orifice. The scope was then slowly withdrawn with the above-noted findings. The patient tolerated the procedure well and was taken to the PACU in hemod ynamically stable condition.
--- NOTE | 2024-10-10 09:52 | W.PM.DSUDISC ---
Date of service: 10/10/24 Discharge Plan Disposition Patient Disposition: Home Condition: Good Discharge Details Attending Provider: Tejinder Nam Primary Care Provider: Ольга Lacey Home Meds and New Rx's Prescriptions: No Action lisinopril 20 mg tablet 20 mg PO DAILY polyethylene glycol 3350 17 gram/dose powder 238 g PO ONCE Qty: 238 0RF Rx Instructions: take per colonoscopy instructions bisacodyl [Dulcolax (bisacodyl)] 5 mg tablet,delayed release (DR/EC) 5 mg PO ONCE Qty: 4 0RF Rx Instructions: take per colonoscopy instructions phentermine 15 mg capsule 15 mg PO DAILY PRN Rx Instructions: must administer 2 hours after breakfast bupropion HCl 150 mg tablet sustained-release 12 hr 150 mg PO BID PRN Discharge Instructions Additional Instructions: FINDINGS: Your colon is normal. No polyps. No cancer. Nothing of concern. Repeat a colonoscopy in 10 years. Activity:: Activity as Tolerated Diet:: As Tolerated Discharge Orders Discharge Orders: Discharge Order (Routine); Ordered 10/10/24 Ordered By: Tejinder Nam
--- NOTE | 2024-10-10 10:21 | W.ANESPRE ---
General Info Date of Service Date Performed: 10/10/24 Height: 5 ft 7 in Weight: 102 kg Body Mass Index (BMI): 35.2 Surgical Procedure: Operation Date: 10/10/24 10:20 Proposed Procedure Side Surgeon p Colonoscopy Tejinder Nam MD Meds Allergies and Home Medications Allergies Allergy/AdvReac Type Severity Reaction Status Date / Time Penicillins Allergy Severe ANAPHALACTI Verified 10/10/24 08:42 C Home Medication ?Medication ?Instructions ?Recorded lisinopril 20 mg tablet 20 mg PO DAILY 08/16/23 bupropion HCl 150 mg tablet,12 hr 150 mg PO BID PRN 08/27/24 sustained-release phentermine 15 mg capsule 15 mg PO DAILY PRN 08/27/24 bisacodyl 5 mg tablet,delayed 5 mg PO ONCE colonscopy bowel prep 09/11/24 release (Dulcolax (bisacodyl)) #4 tabs polyethylene glycol 3350 17 238 g PO ONCE colonoscopy prep 09/11/24 gram/dose oral powder #238 grams Current Visit Medications: Current Medications Generic Name Dose Route Start Last Admin Trade Name Freq PRN Reason Stop Dose Admin Ringer's Solution 1,000 mls @ 80 mls/hr 10/10/24 06:00 10/10/24 08:57 IV 10/10/24 23:59 80 mls/hr INFUSION FANNY Administration IV Miscellaneous Supplies 1 each 10/10/24 06:00 Iv Access IV 10/10/24 23:59 DIRECTED FANNY Sodium Chloride 0 ml 10/10/24 06:00 Normal Saline Flush 10 Ml Syr IV 10/10/24 23:59 PRN PRN Sodium Chloride 0 ml 10/10/24 06:00 Normal Saline 10 Ml Vial IJ 10/10/24 23:59 DIRECTED PRN Sterile Water 0 ml 10/10/24 06:00 Water,Injection,Sterile 10 Ml Vial IJ 10/10/24 23:59 DIRECTED PRN PFSH Active Problems Active Problems: Problem Status Onset Code HTN (hypertension) Chronic I10 Hematometra Acute N85.7 Postop check Acute Z09 Pelvic pain Acute R10.2 Uterine cramping Acute N94.89 Abnormal uterine bleeding (AUB) Acute N93.9 History of endometrial ablation Acute Z98.890 Hx of acute cystitis Acute Z87.440 Physiological nipple discharge Acute N64.52 Hemorrhoid Acute K64.9 Perimenopausal vasomotor symptoms Acute N95.1 Dysmenorrhea Acute N94.6 Oligomenorrhea Acute N91.5 Vaginitis Acute N76.0 Dysuria Acute R30.0 Asymmetrical sensorineural hearing loss Acute H90.5 Medical History Medical History Heart murmur (~11/05/17) Hearing loss of left ear History of herpes zoster Skin lesion of breast Chronic pelvic pain in female 2007 onset. 2008 Neg Dx Laparoscopy 2013 pain resolved with 60lb wt loss. Polycystic ovaries Surgical History Surgical History History of meniscectomy of left knee History of shoulder surgery colonoscopy Ligation of fallopian tube (~2007) Tonsillectomy and adenoidectomy section (~2003) wound infection R lateral margin. healed by secondary intention. daughter Rosalba. Diagnostic Laproscopy (~2007) no endometriosis or adhesions Tobacco Smoking/Tobacco Use Status: Never Passive smoking exposure: No Alcohol Alcohol Intake: never Substance Use Substance use: Never Substance use type: does not use Prental History History 1 Para Hx # Term Pregnancies Multiple births Hx # Pregnancies Ectopic pregnancies AB induced Hx Number of Living Children AB spontaneous Vital Signs and Lab Results Vital Signs Most Recent Vital Signs in EMR: Most Recent Vital Signs Temp Pulse Resp BP Pulse Ox 36.3 C L 71 18 106/86 98 10/10/24 08:40 10/10/24 08:40 10/10/24 08:40 10/10/24 08:40 10/10/24 08:40 Point of Care Results Point of Care Results: POC- Test(urine) Negative 10/10/24 10:21 Lab Results Blood Type / Crossmatch: No Data to Display Complete Blood Count: No Data to Display Complete Metabolic Panel: No Data to Display Liver Function Panel: No Data to Display Coagulation Panel: No Data to Display Cardiac Panel: No Data to Display Arterial Blood Gas: No Data to Display Venous Blood Gas: No Data to Display Pancreas Panel: No Data to Display Thyroid Panel: No Data to Display Infectious Disease: No Data to Display Blood Cultures: No Data to Display Toxicology Panel: No Data to Display Panel: No Data to Display Anesthesia Assessment and Plan Anesthesia History Personal History: PONV Family History: No Family History of Anesthesia Complications Exercise Tolerance Exercise Tolerance: Metabolic Equivalents>4 Pertinent Negatives Pertinent Negatives: No Symptoms of GERD, No Major Cardiovascular Symptoms or Complaints and No Major Pulmonary Symptoms or Complaints Cardiac & Pulmonary Exam Cardiac Exam: Normal S1/S2 Heart Sounds Pulmonary Exam: Clear Bilateral Breath Sounds Implantable Cardiac Device Does patient have a Pacemaker or an ICD?: No Airway Exam Known Difficult Airway: No Mallampati Class: 3 Mouth Opening: Normal (> 3cm) Thyromental Distance: Greater than 3 cm Neck Range of Motion: Full ROM Neck Circumference: Normal Teeth Condition: Normal Dentition ASA Classification ASA Score: ASA 2 Emergency Case?: No NPO Status NPO Status: NPO Clears >2 hours, Solids >8 hours Status Status: Negative HCG Anesthesia Plan Resuscitation Status: Full Code Anesthesia Technique: General Anesthesia Airway Planned: Natural Airway Monitors Used: Standard Monitors
[2024-10-10 10:38] VITALS: BMI 35.2
[2024-10-10 11:00] VITALS: BP 119/75; PULSE 67; RESP 18; TEMP 36.4; O2SAT 99
--- NOTE | 2024-10-10 11:05 | W.ANESPOSTOP ---
Postoperative Evaluation Date, Time and Location Date Performed: 10/10/24 Time Performed: 11:05 Patient Location: Day Surgery Unit Vital Signs Most Recent Imported Vital Signs: Most Recent Vital Signs Temp Pulse Resp BP Pulse Ox 36.4 C L 67 18 119/75 99 10/10/24 11:00 10/10/24 11:00 10/10/24 11:00 10/10/24 11:00 10/10/24 11:00 Assessment Mental Status: Awake (Alert & Oriented to Patient Baseline) Airway and Respiratory Function: Patent airway with normal (patient baseline) respiratory exam Cardiovascular Function: Hemodynamically Stable Hydration Status: Adequately Hydrated Nausea & Vomiting: No Nausea or Vomiting Pain: Pt. Denies Any Pain Peripheral Nerve Block: Patient did not receive a nerve block
[2024-10-10 11:19] VITALS: BP 119/76; PULSE 65; RESP 20; TEMP 36.5; O2SAT 98
== END 2024-10-10 12:04 | disposition home or self-care (01) ==
PROVIDERS: PCP Family Medicine; Visit Provider Student in an Organized Health Care Education/Training Program
PROC: 0DJD8ZZ Inspection of Lower Intestinal Tract, Via Natural or Artificial Opening Endoscopic (ICD-10-PCS; CPT 45378; principal; 2024-10-10 10:15)
DX: Z12.11 Encounter for screening for malignant neoplasm of colon (principal); K64.4 Residual hemorrhoidal skin tags; K64.8 Other hemorrhoids
CPT/HCPCS: 45378; J2003; J2704

== ENCOUNTER 2025-01-16 05:29 | Outpatient (CLI) | payer BC, SELFPAY ==
--- NOTE | 2025-01-16 | DI.MAMMO_ITS ---
Exam(s) MAMMO SCREENING EXAM: MAMMO SCREENING CLINICAL HISTORY: SCREENING MAMMO Z12.31 TECHNIQUE: Mammograms were interpreted according to the usual protocol including computer analysis with CAD system, tomosynthesis and C-view imaging. COMPARISON: 2021 through 2023 FINDINGS: The breasts are composed of scattered fibroglandular densities, Breast Density category B. No suspicious masses or suspicious microcalcifications are seen. No skin thickening or abnormal axillary lymph nodes are seen. There has been no significant change from prior exams. IMPRESSION: BI-RADS Category 1, Negative mammogram Yearly screening mammography is recommended. Breast Density - Category B - There are scattered areas of fibroglandular density. Breast density Category C or D implies that the patient has dense breast tissue. Dense breast tissue can make it harder to find cancer on a mammogram. Dense breast tissue is also associated with an increased risk of breast cancer. This information about the result of the mammogram report was provided to the patient to raise their awareness. Use this report when you speak with the patient about their risks for breast cancer, which includes their family history. At that time, you may recommend additional screening tests (Ultrasound or MRI) as these tests may add significant information. A negative radiographic report should not delay biopsy if a dominant or clinically suspicious mass is present. Up to ten percent of cancers are not identified on mammography. A negative report may reinforce clinical impression. Adenosis and dense breasts may obscure an underlying neoplasm. False positive reports average 6 to 10%. Patient will receive a letter notifying them of these results.
== END 2025-01-16 05:49 ==
PROVIDERS: PCP Family Medicine; Visit Provider Family Medicine
DX: Z12.31 Encounter for screening mammogram for malignant neoplasm of breast (principal); R92.323 Mammographic fibroglandular density, bilateral breasts
CPT/HCPCS: 77063; 77067